=== PATIENT | male | born 1965 | race Caucasian/White ===

== ENCOUNTER 2019-11-25 16:35 | Emergency (ER) | payer MEDICAID, SELFPAY ==
[2019-11-25 16:39] VITALS: BP 176/108; PULSE 87; RESP 16; TEMP 37.1; O2SAT 98; BMI 27.4
--- NOTE | 2019-11-25 16:48 | ED_ITS ---
Documented by User: Richie Matthew DO 11/26/19 06:05 HPI - Neuro Symptoms/Deficit General: Chief Complaint: Neuro Symptoms/Deficit Stated Complaint: stroke s/s Time Seen by Provider: 11/25/19 16:47 History of Present Illness: HPI Narrative: 54-year-old male presents complaining of left-sided facial pain and numbness. He has had this on and off for the last several weeks. His speech is been slurred with it as well but is completely resolved now he usually does not take any aspirin most days times he has these episodes of the last about 15 minutes today lasted 30 minutes. He denies any chest pain or shortness of breath with it. He denies any recent head trauma he is not on any kind of regular anticoagulants. Associated symptoms: Deny chest pain, malaise, nausea or vomiting Review of Systems Const: Denies: fever, chills, body aches, change in appetite, fatigue or malaise ENMT: Denies: throat pain, ear pain, nasal discharge or nasal congestion Card: Denies: chest pain, edema, shortness of breath on exertion or shortness of breath when lying down Resp: Denies: shortness of breath, productive cough or non-productive cough GI: Denies: abdominal pain, nausea, vomiting, vomiting blood, coffee grounds in vomit, diarrhea, constipation, bloating, blood in stool or black tarry stool : Denies: flank pain, painful urination, urinary frequency or urinary urgency Skin/Breast: Denies: rash or itching PFSH ED PFSH: Medical History (Updated 11/25/19 @ 22:12 by AUBREY Moses) Essential (primary) hypertension Mixed hyperlipidemia Personal history of nicotine dependence Surgical History (Updated 11/25/19 @ 21:35 by AUBREY Moses) No pertinent past surgical history Social History (Updated 11/25/19 @ 22:00 by AUBREY Moses) Smoking and tobacco status: current every day smoker Lives independently: Yes Household members: family Housing: House Current gender identity: Male NIH stroke score NIHSS: Level Of Consciousness - 1a: 0 Level Of Consciousness Questions - 1b: Both Correct Level Of Consciousness Commands - 1c: Both Correct Best Gaze - 2: Normal Visual Santos - 3: No Visual Loss Facial Palsy - 4: Normal Motor Arm Right - 5: No Drift Motor Arm Left - 5: No Drift Motor Leg Right - 6: No Drift Motor Leg Left - 6: No Drift Limb Ataxia - 7: Absent Sensory - 8: Normal Best Language - 9: No Aphasia Dysarthia - 10: Normal Extinction And Inattention - 11: 0 Score: Total Score: 0 Physical Exam Const: COMMON NORMALS: no apparent distress GENERAL APPEARANCE: cooperative and comfortable ORIENTATION/CONSCIOUSNESS: Yes awake, Yes oriented to person, Yes oriented to place and Yes oriented to time HENMT: COMMON NORMALS: normocephalic, head/scalp atraumatic, hearing grossly normal bilaterally, external ears normal, EAC's normal, TM's normal bilaterally, nasal mucous membranes and turbinates normal, moist oral mucous membranes and oropharynx normal HEAD & SCALP: normocephalic and atraumatic NOSE: nasal mucous membranes and turbinates normal EXTERNAL EAR: Yes external ears normal EXTERNAL AUDITORY CANAL: EAC's normal TYMPANIC MEMBRANE: TM's normal bilaterally Eye: COMMON NORMALS: PERRL, EOMs intact bilaterally, conjunctivae normal and no scleral icterus CONJUNCTIVA: Yes conjunctivae normal PUPIL: Yes PERRL Neck/C-Spine: COMMON NORMALS: full ROM, no lymphadenopathy, supple and no JVD Lymph: LYMPHATIC: no lymphadenopathy noted and no lymphedema noted Resp: COMMON NORMALS: normal respiratory effort, no retractions, no use of accessory muscles and clear to auscultation bilaterally AUSCULTATION: clear to auscultation bilaterally Cardio: COMMON NORMALS: no JVD, regular rate, regular rhythm and no murmurs RATE: regular rate RHYTHM: regular rhythm GI: COMMON NORMALS: soft to palpation and no hepatosplenomegaly AUSCULTATION: Yes normoactive bowel sounds PALPATION: Yes soft, No tender, No guarding and Yes no hepatosplenomegaly Extremity: COMMON NORMALS: normal to inspection, normal capillary refill, no clubbing, cyanosis or edema, no calf tenderness and no pedal edema Neuro: SENSORIUM/ORIENTATION: Yes oriented to person, Yes oriented to place and Yes oriented to time Skin: COMMON NORMALS: no rashes or lesions noted GENERAL SKIN EXAM: no rashes or lesions noted Course Vital Signs: Vital signs: Vital Signs Temperature 98.7 F 11/25/19 16:39 Pulse Rate 76 11/25/19 18:38 Respiratory Rate 18 04/20/20 18:38 Blood Pressure 138/78 11/25/19 18:38 Pulse Oximetry 98 11/25/19 18:38 MDM - Neuro Symptoms/Deficit Lab Data: Labs: Lab Results 11/25/19 11/25/19 11/25/19 Range/Units 17:26 17:26 17:35 WBC 8.1 (4.0-10.0) 10^3/ uL RBC 5.38 H (4.1-5.3) 10^6/u L Hgb 15.5 (11.7-16.6) g/dL Hct 47.3 (42.0-52.0) % MCV 87.9 (80-94) fL MCH 28.8 (28.0-34.0) pg MCHC 32.8 (30.0-36.0) g/dL RDW 15.3 H (12.1-15.1) % Plt Count 287 (130-400) 10^3/c mm MPV 10.5 H (7.4-10.4) fL Neut % (Auto) 67.8 % Lymph % (Auto) 23.8 % [place] % (Auto) 6.6 % Eos % (Auto) 1.5 % Baso % (Auto) 0.1 % Neut # (Auto) 5.5 (1.8-7.7) 10^3/u L Lymph # (Auto) 1.9 (0.8-4.8) 10^3/u L [place] # (Auto) 0.5 (0.2-0.9) 10^3/u L Eos # (Auto) 0.1 (0.0-0.8) 10^3/u L Baso # (Auto) 0.0 (0.0-0.1) 10^3/u L Nucleated RBC % (a uto) 0 % Nucleated RBCs # 0.0 /100WBC PT (10.5-13.3) SECO NDS INR (0.8-1.2) APTT (23.9-36.7) SECO NDS Sodium (136-145) mmol/L Potassium (3.5-5.1) mmol/L Chloride (98-107) mmol/L Carbon Dioxide (22-29) mmol/L Anion Gap (5-19) BUN (6-20) mg/dL Creatinine (0.7-1.2) mg/dL GFR Calculation (90-130) mL/min Glucose (65-115) mg/dL POC Glucose (70-110) mg/dL Calculated Osmolal ity (285-295) mOsm/k g Calcium (8.5-10.5) mg/dL Total Bilirubin (0.15-1.2) mg/dL AST (0-40) U/L ALT (0-41) U/L Alkaline Phosphata se (40-130) IU/L Total Protein (6.6-8.7) g/dL Albumin (3.5-5.2) g/dL Globulin (1.3-4.6) g/dL Triglycerides (0-150) mg/dL Cholesterol (0-200) mg/dL LDL Cholesterol, C alc (50-129) mg/dL HDL Cholesterol (60-100) mg/dL LDL/HDL Ratio (0.00-3.22) RATI O Cholesterol/HDL Ra lana (1.0-5.00) mg/dL Urine Color Yellow (Yellow) Urine Appearance Clear (CLEAR) Urine pH 6 (5-7) Ur Specific Gravit y 1.010 (1.005-1.030) Urine Protein Neg (Negative) Urine Glucose (UA) Norm (Normal) Urine Ketones Negative (Negative) Urine Blood Neg (Negative) Urine Nitrate Negative (Negative) Urine Bilirubin Neg (NEGATIVE) Urine Urobilinogen Norm (Negative) mg/dL Ur Leukocyte Mirna ase Negative (Negative) Urine Opiates Scre en Negative (Negative) ng/mL Ur Barbiturates Sc reen Negative (Negative) ng/mL Ur Phencyclidine S crn Negative (Negative) ng/mL Ur Amphetamines Sc reen Negative (Negative) ng/mL U Benzodiazepines Scrn Negative (Negative) ng/mL Urine Cocaine Scre en Negative (Negative) ng/mL U Marijuana (THC) Screen Negative (Negative) ng/mL 11/25/19 11/25/19 11/25/19 Range/Units 17:44 18:17 18:17 WBC (4.0-10.0) 10^3/ uL RBC (4.1-5.3) 10^6/u L Hgb (11.7-16.6) g/dL Hct (42.0-52.0) % MCV (80-94) fL MCH (28.0-34.0) pg MCHC (30.0-36.0) g/dL RDW (12.1-15.1) % Plt Count (130-400) 10^3/c mm MPV (7.4-10.4) fL Neut % (Auto) % Lymph % (Auto) % [place] % (Auto) % Eos % (Auto) % Baso % (Auto) % Neut # (Auto) (1.8-7.7) 10^3/u L Lymph # (Auto) (0.8-4.8) 10^3/u L [place] # (Auto) (0.2-0.9) 10^3/u L Eos # (Auto) (0.0-0.8) 10^3/u L Baso # (Auto) (0.0-0.1) 10^3/u L Nucleated RBC % (a uto) % Nucleated RBCs # /100WBC PT 13.00 (10.5-13.3) SECO NDS INR 0.96 (0.8-1.2) APTT 32.3 (23.9-36.7) SECO NDS Sodium 136 (136-145) mmol/L Potassium 3.8 (3.5-5.1) mmol/L Chloride 99 (98-107) mmol/L Carbon Dioxide 27 (22-29) mmol/L Anion Gap 13.8 (5-19) BUN 14 (6-20) mg/dL Creatinine 1.5 H (0.7-1.2) mg/dL GFR Calculation 48.6 L (90-130) mL/min Glucose 83 (65-115) mg/dL POC Glucose 91 (70-110) mg/dL Calculated Osmolal ity 277 L (285-295) mOsm/k g Calcium 9.8 (8.5-10.5) mg/dL Total Bilirubin 0.3 (0.15-1.2) mg/dL AST 13 (0-40) U/L ALT 12 (0-41) U/L Alkaline Phosphata se 104 (40-130) IU/L Total Protein 7.1 (6.6-8.7) g/dL Albumin 3.9 (3.5-5.2) g/dL Globulin 3.2 (1.3-4.6) g/dL Triglycerides (0-150) mg/dL Cholesterol (0-200) mg/dL LDL Cholesterol, C alc (50-129) mg/dL HDL Cholesterol (60-100) mg/dL LDL/HDL Ratio (0.00-3.22) RATI O Cholesterol/HDL Ra lana (1.0-5.00) mg/dL Urine Color (Yellow) Urine Appearance (CLEAR) Urine pH (5-7) Ur Specific Gravit y (1.005-1.030) Urine Protein (Negative) Urine Glucose (UA) (Normal) Urine Ketones (Negative) Urine Blood (Negative) Urine Nitrate (Negative) Urine Bilirubin (NEGATIVE) Urine Urobilinogen (Negative) mg/dL Ur Leukocyte Mirna ase (Negative) Urine Opiates Scre en (Negative) ng/mL Ur Barbiturates Sc reen (Negative) ng/mL Ur Phencyclidine S crn (Negative) ng/mL Ur Amphetamines Sc reen (Negative) ng/mL U Benzodiazepines Scrn (Negative) ng/mL Urine Cocaine Scre en (Negative) ng/mL U Marijuana (THC) Screen (Negative) ng/mL 11/25/19 Range/Units 18:17 WBC (4.0-10.0) 10^3/ uL RBC (4.1-5.3) 10^6/u L Hgb (11.7-16.6) g/dL Hct (42.0-52.0) % MCV (80-94) fL MCH (28.0-34.0) pg MCHC (30.0-36.0) g/dL RDW (12.1-15.1) % Plt Count (130-400) 10^3/c mm MPV (7.4-10.4) fL Neut % (Auto) % Lymph % (Auto) % [place] % (Auto) % Eos % (Auto) % Baso % (Auto) % Neut # (Auto) (1.8-7.7) 10^3/u L Lymph # (Auto) (0.8-4.8) 10^3/u L [place] # (Auto) (0.2-0.9) 10^3/u L Eos # (Auto) (0.0-0.8) 10^3/u L Baso # (Auto) (0.0-0.1) 10^3/u L Nucleated RBC % (a uto) % Nucleated RBCs # /100WBC PT (10.5-13.3) SECO NDS INR (0.8-1.2) APTT (23.9-36.7) SECO NDS Sodium (136-145) mmol/L Potassium (3.5-5.1) mmol/L Chloride (98-107) mmol/L Carbon Dioxide (22-29) mmol/L Anion Gap (5-19) BUN (6-20) mg/dL Creatinine (0.7-1.2) mg/dL GFR Calculation (90-130) mL/min Glucose (65-115) mg/dL POC Glucose (70-110) mg/dL Calculated Osmolal ity (285-295) mOsm/k g Calcium (8.5-10.5) mg/dL Total Bilirubin (0.15-1.2) mg/dL AST (0-40) U/L ALT (0-41) U/L Alkaline Phosphata se (40-130) IU/L Total Protein (6.6-8.7) g/dL Albumin (3.5-5.2) g/dL Globulin (1.3-4.6) g/dL Triglycerides 280 H (0-150) mg/dL Cholesterol 212 H (0-200) mg/dL LDL Cholesterol, C alc 137 H (50-129) mg/dL HDL Cholesterol 19 L (60-100) mg/dL LDL/HDL Ratio 7.21 H (0.00-3.22) RATI O Cholesterol/HDL Ra lana 11.16 H (1.0-5.00) mg/dL Urine Color (Yellow) Urine Appearance (CLEAR) Urine pH (5-7) Ur Specific Gravit y (1.005-1.030) Urine Protein (Negative) Urine Glucose (UA) (Normal) Urine Ketones (Negative) Urine Blood (Negative) Urine Nitrate (Negative) Urine Bilirubin (NEGATIVE) Urine Urobilinogen (Negative) mg/dL Ur Leukocyte Mirna ase (Negative) Urine Opiates Scre en (Negative) ng/mL Ur Barbiturates Sc reen (Negative) ng/mL Ur Phencyclidine S crn (Negative) ng/mL Ur Amphetamines Sc reen (Negative) ng/mL U Benzodiazepines Scrn (Negative) ng/mL Urine Cocaine Scre en (Negative) ng/mL U Marijuana (THC) Screen (Negative) ng/mL Discharge Plan Discharge Patient Disposition: Left Against Medical Advice Clinical Impression: Transient cerebral ischemia Qualifiers: Transient cerebral ischemia type: unspecified Qualified Code(s): G45.9 - Transient cerebral ischemic attack, unspecified Condition: Stable Prescriptions: New aspirin 325 mg tablet 325 mg PO DAILY Qty: 90 RF: 0 No Action Tylenol Extra Strength 500 mg Tablet 1,000 mg PO PRN RF: 0 Viagra 100 mg tablet 100 mg PO DAILY PRN (Reason: UNKNOWN) RF: 0 Blood Pressure Med 1 tab PO DAILY RF: 0 Discharge Orders: Discharge Order (Routine); Ordered 11/25/19 Ordered By: Donna Mora Referrals: [facility] FNP-C [Primary Care Provider] - 1-3 days Discharge Diet: Advance as tolerated Discharge Activity: Increase activity as tolerated Patient Instructions: Transient Ischemic Attack (ED), TIA Activity Restrictions/Additional Instructions: You're leaving AGAINST MEDICAL ADVICE and are at risk for or severe permanent disability by doing so. You are more than welcome to return at any time for recheck and for further evaluation and care suture change you change your mind. You have been offered further evaluation and care to better determine your risk for having a complete stroke. I have offered to admit you to complete further evaluation but you have declined. If you change your mind, your symptoms return, or you have any other new symptoms you are encouraged to return to the ER immediately for recheck and further evaluation and care. Take your aspirin daily as I have prescribed and be certain to follow-up with P[facility]i [facility] as soon as possible for further evaluation and care. Stand Alone Forms: Against Medical Advice Discharge Date/Time: 11/25/19 20:43 Sign Out Sign Out Data: Patient Sign Out occurred on 11/25/19 at 18:00. Patient's care was discussed, and care was transferred from to Donna Mora. Coding Level of Care Code ED Summer Intern for Chg Fwd Exam Comprehensive Documented by User: Donna Graciela MeyerAbby 11/25/19 20:03 HPI - Neuro Symptoms/Deficit General: Chief Complaint: Neuro Symptoms/Deficit Stated Complaint: stroke s/s Time Seen by Provider: 11/25/19 16:47 PFSH ED PFSH: Medical History (Updated 11/25/19 @ 22:12 by AUBREY Moses) Essential (primary) hypertension Mixed hyperlipidemia Personal history of nicotine dependence Surgical History (Updated 11/25/19 @ 21:35 by AUBREY Moses) No pertinent past surgical history Social History (Updated 11/25/19 @ 22:00 by AUBREY Moses) Smoking and tobacco status: current every day smoker Lives independently: Yes Household members: family Housing: House Current gender identity: Male Course Vital Signs: Vital signs: Vital Signs Temperature 98.7 F 11/25/19 16:39 Pulse Rate 76 11/25/19 18:38 Respiratory Rate 18 11/25/19 18:38 Blood Pressure 138/78 11/25/19 18:38 Pulse Oximetry 98 11/25/19 18:38 MDM - Neuro Symptoms/Deficit MDM Narrative: Medical decision making narrative: 1800 -Case assumed by me at change of shift from Dr. Matthew. Please see his note for his history, physical exam and medical decision-making notes. Patient states he is symptom- free at this time. I discussed with him a normal head CT but informed him that he is at risk of worsening symptoms as his TIA sounds like they are getting worse. They are becoming slightly more frequent by history and also more severe and lasting longer. Informed the patient it would be safest if he came into the hospital for complete and formal work-up but he refuses. I will go ahead and do all that I can for him here with CTs and laboratory studies and have him follow- up with Dr. Hayden in [place]. Patient agrees to more extensive ER work-up. 1999 -the patient refuses to wait any longer and wants to go home. His lipid panel is pending at this time. His CTA did not show anything intervene of all at this time. The patient understands he needs to take an aspirin daily and I have reviewed with him the risks and benefits of staying but he still refuses to stay and demands to go home. He agrees to follow-up with the payal soon as possible states he understands but still at this time declined staying in the hospital. The patient clearly has the capacity to make his own decisions. He has asked questions and have them answered to his satisfaction and has used this information and still made the decision that he wants to go home. He does agree to return should his symptoms return. Lab Data: Attestation: I reviewed the patient's lab results. Labs: Lab Results 11/25/19 11/25/19 11/25/19 Range/Units 17:26 17:26 17:35 WBC 8.1 (4.0-10.0) 10^3/ uL RBC 5.38 H (4.1-5.3) 10^6/u L Hgb 15.5 (11.7-16.6) g/dL Hct 47.3 (42.0-52.0) % MCV 87.9 (80-94) fL MCH 28.8 (28.0-34.0) pg MCHC 32.8 (30.0-36.0) g/dL RDW 15.3 H (12.1-15.1) % Plt Count 287 (130-400) 10^3/c mm MPV 10.5 H (7.4-10.4) fL Neut % (Auto) 67.8 % Lymph % (Auto) 23.8 % [place] % (Auto) 6.6 % Eos % (Auto) 1.5 % Baso % (Auto) 0.1 % Neut # (Auto) 5.5 (1.8-7.7) 10^3/u L Lymph # (Auto) 1.9 (0.8-4.8) 10^3/u L [place] # (Auto) 0.5 (0.2-0.9) 10^3/u L Eos # (Auto) 0.1 (0.0-0.8) 10^3/u L Baso # (Auto) 0.0 (0.0-0.1) 10^3/u L Nucleated RBC % (a uto) 0 % Nucleated RBCs # 0.0 /100WBC PT (10.5-13.3) SECO NDS INR (0.8-1.2) APTT (23.9-36.7) SECO NDS Sodium (136-145) mmol/L Potassium (3.5-5.1) mmol/L Chloride (98-107) mmol/L Carbon Dioxide (22-29) mmol/L Anion Gap (5-19) BUN (6-20) mg/dL Creatinine (0.7-1.2) mg/dL GFR Calculation (90-130) mL/min Glucose (65-115) mg/dL POC Glucose (70-110) mg/dL Calculated Osmolal ity (285-295) mOsm/k g Calcium (8.5-10.5) mg/dL Total Bilirubin (0.15-1.2) mg/dL AST (0-40) U/L ALT (0-41) U/L Alkaline Phosphata se (40-130) IU/L Total Protein (6.6-8.7) g/dL Albumin (3.5-5.2) g/dL Globulin (1.3-4.6) g/dL Triglycerides (0-150) mg/dL Cholesterol (0-200) mg/dL LDL Cholesterol, C alc (50-129) mg/dL HDL Cholesterol (60-100) mg/dL LDL/HDL Ratio (0.00-3.22) RATI O Cholesterol/HDL Ra lana (1.0-5.00) mg/dL Urine Color Yellow (Yellow) Urine Appearance Clear (CLEAR) Urine pH 6 (5-7) Ur Specific Gravit y 1.010 (1.005-1.030) Urine Protein Neg (Negative) Urine Glucose (UA) Norm (Normal) Urine Ketones Negative (Negative) Urine Blood Neg (Negative) Urine Nitrate Negative (Negative) Urine Bilirubin Neg (NEGATIVE) Urine Urobilinogen Norm (Negative) mg/dL Ur Leukocyte Mirna ase Negative (Negative) Urine Opiates Scre en Negative (Negative) ng/mL Ur Barbiturates Sc reen Negative (Negative) ng/mL Ur Phencyclidine S crn Negative (Negative) ng/mL Ur Amphetamines Sc reen Negative (Negative) ng/mL U Benzodiazepines Scrn Negative (Negative) ng/mL Urine Cocaine Scre en Negative (Negative) ng/mL U Marijuana (THC) Screen Negative (Negative) ng/mL 11/25/19 11/25/19 11/25/19 Range/Units 17:44 18:17 18:17 WBC (4.0-10.0) 10^3/ uL RBC (4.1-5.3) 10^6/u L Hgb (11.7-16.6) g/dL Hct (42.0-52.0) % MCV (80-94) fL MCH (28.0-34.0) pg MCHC (30.0-36.0) g/dL RDW (12.1-15.1) % Plt Count (130-400) 10^3/c mm MPV (7.4-10.4) fL Neut % (Auto) % Lymph % (Auto) % [place] % (Auto) % Eos % (Auto) % Baso % (Auto) % Neut # (Auto) (1.8-7.7) 10^3/u L Lymph # (Auto) (0.8-4.8) 10^3/u L [place] # (Auto) (0.2-0.9) 10^3/u L Eos # (Auto) (0.0-0.8) 10^3/u L Baso # (Auto) (0.0-0.1) 10^3/u L Nucleated RBC % (a uto) % Nucleated RBCs # /100WBC PT 13.00 (10.5-13.3) SECO NDS INR 0.96 (0.8-1.2) APTT 32.3 (23.9-36.7) SECO NDS Sodium 136 (136-145) mmol/L Potassium 3.8 (3.5-5.1) mmol/L Chloride 99 (98-107) mmol/L Carbon Dioxide 27 (22-29) mmol/L Anion Gap 13.8 (5-19) BUN 14 (6-20) mg/dL Creatinine 1.5 H (0.7-1.2) mg/dL GFR Calculation 48.6 L (90-130) mL/min Glucose 83 (65-115) mg/dL POC Glucose 91 (70-110) mg/dL Calculated Osmolal ity 277 L (285-295) mOsm/k g Calcium 9.8 (8.5-10.5) mg/dL Total Bilirubin 0.3 (0.15-1.2) mg/dL AST 13 (0-40) U/L ALT 12 (0-41) U/L Alkaline Phosphata se 104 (40-130) IU/L Total Protein 7.1 (6.6-8.7) g/dL Albumin 3.9 (3.5-5.2) g/dL Globulin 3.2 (1.3-4.6) g/dL Triglycerides (0-150) mg/dL Cholesterol (0-200) mg/dL LDL Cholesterol, C alc (50-129) mg/dL HDL Cholesterol (60-100) mg/dL LDL/HDL Ratio (0.00-3.22) RATI O Cholesterol/HDL Ra lana (1.0-5.00) mg/dL Urine Color (Yellow) Urine Appearance (CLEAR) Urine pH (5-7) Ur Specific Gravit y (1.005-1.030) Urine Protein (Negative) Urine Glucose (UA) (Normal) Urine Ketones (Negative) Urine Blood (Negative) Urine Nitrate (Negative) Urine Bilirubin (NEGATIVE) Urine Urobilinogen (Negative) mg/dL Ur Leukocyte Mirna ase (Negative) Urine Opiates Scre en (Negative) ng/mL Ur Barbiturates Sc reen (Negative) ng/mL Ur Phencyclidine S crn (Negative) ng/mL Ur Amphetamines Sc reen (Negative) ng/mL U Benzodiazepines Scrn (Negative) ng/mL Urine Cocaine Scre en (Negative) ng/mL U Marijuana (THC) Screen (Negative) ng/mL 11/25/19 Range/Units 18:17 WBC (4.0-10.0) 10^3/ uL RBC (4.1-5.3) 10^6/u L Hgb (11.7-16.6) g/dL Hct (42.0-52.0) % MCV (80-94) fL MCH (28.0-34.0) pg MCHC (30.0-36.0) g/dL RDW (12.1-15.1) % Plt Count (130-400) 10^3/c mm MPV (7.4-10.4) fL Neut % (Auto) % Lymph % (Auto) % [place] % (Auto) % Eos % (Auto) % Baso % (Auto) % Neut # (Auto) (1.8-7.7) 10^3/u L Lymph # (Auto) (0.8-4.8) 10^3/u L [place] # (Auto) (0.2-0.9) 10^3/u L Eos # (Auto) (0.0-0.8) 10^3/u L Baso # (Auto) (0.0-0.1) 10^3/u L Nucleated RBC % (a uto) % Nucleated RBCs # /100WBC PT (10.5-13.3) SECO NDS INR (0.8-1.2) APTT (23.9-36.7) SECO NDS Sodium (136-145) mmol/L Potassium (3.5-5.1) mmol/L Chloride (98-107) mmol/L Carbon Dioxide (22-29) mmol/L Anion Gap (5-19) BUN (6-20) mg/dL Creatinine (0.7-1.2) mg/dL GFR Calculation (90-130) mL/min Glucose (65-115) mg/dL POC Glucose (70-110) mg/dL Calculated Osmolal ity (285-295) mOsm/k g Calcium (8.5-10.5) mg/dL Total Bilirubin (0.15-1.2) mg/dL AST (0-40) U/L ALT (0-41) U/L Alkaline Phosphata se (40-130) IU/L Total Protein (6.6-8.7) g/dL Albumin (3.5-5.2) g/dL Globulin (1.3-4.6) g/dL Triglycerides 280 H (0-150) mg/dL Cholesterol 212 H (0-200) mg/dL LDL Cholesterol, C alc 137 H (50-129) mg/dL HDL Cholesterol 19 L (60-100) mg/dL LDL/HDL Ratio 7.21 H (0.00-3.22) RATI O Cholesterol/HDL Ra lana 11.16 H (1.0-5.00) mg/dL Urine Color (Yellow) Urine Appearance (CLEAR) Urine pH (5-7) Ur Specific Gravit y (1.005-1.030) Urine Protein (Negative) Urine Glucose (UA) (Normal) Urine Ketones (Negative) Urine Blood (Negative) Urine Nitrate (Negative) Urine Bilirubin (NEGATIVE) Urine Urobilinogen (Negative) mg/dL Ur Leukocyte Mirna ase (Negative) Urine Opiates Scre en (Negative) ng/mL Ur Barbiturates Sc reen (Negative) ng/mL Ur Phencyclidine S crn (Negative) ng/mL Ur Amphetamines Sc reen (Negative) ng/mL U Benzodiazepines Scrn (Negative) ng/mL Urine Cocaine Scre en (Negative) ng/mL U Marijuana (THC) Screen (Negative) ng/mL Imaging Data^: CTA Head and Neck: Radiologist's impression: [place] [address] CT Scan Report Signed Patient: Sumit Parrish Unit #: [id number] : 1965 Age/Sex: 54 / M ADM Date: 11/25/19 Loc: ER Room/Bed: Attending Dr: Ordering Provider/Ordering MD: Donna Mora DO Date of Service: 11/25/19 Procedure(s): CT angio headneck* [id number] Accession Number(s): [id number] Report Number: [id number] PROCEDURE INFORMATION: Exam: CT Angiography Head With Contrast Exam date and time: 11/25/2019 6:58 PM Age: 54 years old Clinical indication: Speech disturbance; Additional info: TIA TECHNIQUE: Imaging protocol: Computed tomography angiography of the head with intravenous contrast. 3D rendering: MIP and/or 3D reconstructed images were created by the technologist. Total DLP: 2481.86 mGy-cm Radiation optimization: All CT scans at this facility use at least one of these dose optimization techniques: automated exposure control; mA and/or kV adjustment per patient size (includes targeted exams where dose is matched to clinical indication); or iterative reconstruction. Contrast material: OMNI 350; Contrast volume: 95 ml; Contrast route: IV; COMPARISON: CT head wo con* [id number] 11/25/2019 5:15 PM FINDINGS: Right internal carotid artery: Calcified plaque in the cavernous portion of the right internal carotid artery without stenosis. Right anterior cerebral artery: No occlusion or significant stenosis. No aneurysm. Right middle cerebral artery: No occlusion or significant stenosis. No aneurysm. Right posterior cerebral artery: No occlusion or significant stenosis. No aneurysm. Right vertebral artery: No occlusion or significant stenosis. No aneurysm. Left internal carotid artery: Intracranial segment is patent with no significant stenosis or occlusion. No aneurysm. Left anterior cerebral artery: No occlusion or significant stenosis. No aneurysm. Left middle cerebral artery: No occlusion or significant stenosis. No aneurysm. Left posterior cerebral artery: No occlusion or significant stenosis. No aneurysm. Left vertebral artery: No occlusion or significant stenosis. No aneurysm. Basilar artery: No occlusion or significant stenosis. No aneurysm. IMPRESSION: 1. No large vessel occlusion or stenosis. PROCEDURE INFORMATION: Exam: CT Angiography Neck With Contrast Exam date and time: 11/25/2019 6:58 PM Age: 54 years old Clinical indication: Speech disturbance; Additional info: TIA TECHNIQUE: Imaging protocol: Computed tomography angiography of the neck with intravenous contrast. 3D rendering: MIP and/or 3D reconstructed images were created by the technologist. Total DLP: 2481.86 mGy-cm Radiation optimization: All CT scans at this facility use at least one of these dose optimization techniques: automated exposure control; mA and/or kV adjustment per patient size (includes targeted exams where dose is matched to clinical indication); or iterative reconstruction. Contrast material: OMNI 350; Contrast volume: 95 ml; Contrast route: IV; COMPARISON: CT head wo con* [id number] 11/25/2019 5:15 PM FINDINGS: VASCULATURE: Right common carotid artery: No stenosis. No dissection or occlusion. Right internal carotid artery: Mild calcified plaque in the proximal right internal carotid artery without stenosis. Right external carotid artery: No occlusion or stenosis of the origin. Right vertebral artery: No stenosis. No dissection or occlusion. Left common carotid artery: No stenosis. No dissection or occlusion. Left internal carotid artery: Mild calcified plaque in the proximal left internal carotid artery without stenosis. Left external carotid artery: No occlusion or stenosis of the origin. Left vertebral artery: No stenosis. No dissection or occlusion. NECK: Bones/joints: No acute fracture. Soft tissues: Normal. No significant soft tissue swelling. Lungs: Ground-glass opacities in the central lungs. CT/CT angio headneck* [id number] IMPRESSION: 1. Calcified plaque in the proximal internal carotid arteries without significant stenosis. REFERENCES: NASCET CRITERIA. The degree of internal carotid artery stenosis is based on NASCET criteria. Normal is no stenosis. Mild is less than 50% stenosis. Moderate is 50-69% stenosis. Severe is 70% to 99% stenosis. Total occlusion is no detectable patent lumen. Radiation Dose CTDIVOL = (mGy): DLP = 2481.86 2481.86 (mGy-cm) Dictated By: Demar Fine Signed By: Demar Fine Signed Date/Time: 11/25/191922 DD/ 21 CT Head: Radiologist's impression: [place] [address] CT Scan Report Signed Patient: Sumit Parrish Unit #: [id number] : [id number] Age/Sex: 54 / M ADM Date: 11/25/19 Loc: ER Room/Bed: Attending Dr: Ordering Provider/Ordering MD: Richie Matthew DO Date of Service: 11/25/19 Procedure(s): CT head wo con* [id number] Accession Number(s): [id number] Report Number: [id number] PROCEDURE INFORMATION: Exam: CT Head Without Contrast Exam date and time: 11/25/2019 5:10 PM Age: 54 years old Clinical indication: Dizziness and speech disturbance; Slurred speech; Additional info: Symptoms of acute stroke TECHNIQUE: Imaging protocol: Computed tomography of the head without contrast. Total DLP: 874.31 mGy-cm Radiation optimization: All CT scans at this facility use at least one of these dose optimization techniques: automated exposure control; mA and/or kV adjustment per patient size (includes targeted exams where dose is matched to clinical indication); or iterative reconstruction. COMPARISON: CT head wo con* [id number] 01/13/2016 7:38 PM FINDINGS: Brain: Mild cortical volume loss. Moderate patchy hypodensities have progressed in supratentorial periventricular and subcortical white matter. Old lacunar infarcts in the left thalamus and right basal ganglia. No intracranial hemorrhage. Ventricles: Normal. No ventriculomegaly. Bones/joints: Unremarkable. No acute fracture. Sinuses: Visualized sinuses are unremarkable. No fluid levels. Mastoid air cells: Visualized mastoid air cells are well aerated. Soft tissues: Unremarkable. CT/CT head wo con* [id number] IMPRESSION: 1. No definite acute intracranial abnormality. 2. Progressive moderate microangiopathy. Radiation Dose CTDIVOL = (mGy): DLP = 874.31 (mGy-cm) Dictated By: Demar Fine Signed By: Demar Fine Signed Date/Time: 11/25/191729 DD/ 28 EKG Data^: EKG 1: Attestation: I personally reviewed and interpreted this EKG as follows: EKG interpretation date: 11/25/19 EKG interpretation time: 17:37 Interpretation: Normal sinus rhythm at 71 beats a minute, normal intervals, no blocks, LVH, no other acute ST-T wave changes. Discharge Plan Discharge Patient Disposition: Left Against Medical Advice Clinical Impression: Transient cerebral ischemia Qualifiers: Transient cerebral ischemia type: unspecified Qualified Code(s): G45.9 - Transi ent cerebral ischemic attack, unspecified Condition: Stable Prescriptions: New aspirin 325 mg tablet 325 mg PO DAILY Qty: 90 RF: 0 No Action Tylenol Extra Strength 500 mg Tablet 1,000 mg PO PRN RF: 0 Viagra 100 mg tablet 100 mg PO DAILY PRN (Reason: UNKNOWN) RF: 0 Blood Pressure Med 1 tab PO DAILY RF: 0 Discharge Orders: Discharge Order (Routine); Ordered 11/25/19 Ordered By: Donna Mora Referrals: Priti Davis, DEBONE PROCESSING SUPERVISOR-C [Primary Care Provider] - 1-3 days Discharge Diet: Advance as tolerated Discharge Activity: Increase activity as tolerated Patient Instructions: Transient Ischemic Attack (ED), TIA Activity Restrictions/Additional Instructions: You're leaving AGAINST MEDICAL ADVICE and are at risk for or severe permanent disability by doing so. You are more than welcome to return at any time for recheck and for further evaluation and care suture change you change your mind. You have been offered further evaluation and care to better determine your risk for having a complete stroke. I have offered to admit you to complete further evaluation but you have declined. If you change your mind, your symptoms return, or you have any other new symptoms you are encouraged to return to the ER immediately for recheck and further evaluation and care. Take your aspirin daily as I have prescribed and be certain to follow-up with Priti Davis as soon as possible for further evaluation and care. Stand Alone Forms: Against Medical Advice Discharge Date/Time: 11/25/19 20:43 Sign Out Sign Out Data: Patient Sign Out occurred on 11/25/19 at 18:00. Patient's care was discussed, and care was transferred from to Donna Mora. Coding Level of Care Code ED Summer Intern for Tory Fwd Exam Comprehensive
--- NOTE | 2019-11-25 17:09 | ECG_ITS ---
Measurements Intervals [place] Rate: 71 P: 34 NV: 124 QRS: -22 QRSD: 108 T: 64 QT: 384 QTc: 418 SINUS RHYTHM BORDERLINE LEFT AXIS DEVIATION [QRS AXIS < -20] MODERATE VOLTAGE CRITERIA FOR LVH, CONSIDER NORMAL VARIANT [MEETS CRITERIA IN ONE ONE OF: R(aVL), S(V1), R(V5), R(V5/V6)+S(V1)] NONSPECIFIC T-WAVE ABNORMALITY Compared to ECG 01/14/2016 01:21:33 No significant changes Electronically Signed On 11-26-2019 18:07:33 CDT by Maida De Dios M.D. [email or web address]
--- NOTE | 2019-11-25 17:09 | CTR_ITS ---
PROCEDURE INFORMATION: Exam: CT Head Without Contrast Exam date and time: 11/25/2019 5:10 PM Age: 54 years old Clinical indication: Dizziness and speech disturbance; Slurred speech; Additional info: Symptoms of acute stroke TECHNIQUE: Imaging protocol: Computed tomography of the head without contrast. Total DLP: 874.31 mGy-cm Radiation optimization: All CT scans at this facility use at least one of these dose optimization techniques: automated exposure control; mA and/or kV adjustment per patient size (includes targeted exams where dose is matched to clinical indication); or iterative reconstruction. COMPARISON: CT head wo con* [id number] 01/13/2016 7:38 PM FINDINGS: Brain: Mild cortical volume loss. Moderate patchy hypodensities have progressed in supratentorial periventricular and subcortical white matter. Old lacunar infarcts in the left thalamus and right basal ganglia. No intracranial hemorrhage. Ventricles: Normal. No ventriculomegaly. Bones/joints: Unremarkable. No acute fracture. Sinuses: Visualized sinuses are unremarkable. No fluid levels. Mastoid air cells: Visualized mastoid air cells are well aerated. Soft tissues: Unremarkable. CT/CT head wo con* [id number] IMPRESSION: 1. No definite acute intracranial abnormality. 2. Progressive moderate microangiopathy. Radiation Dose CTDIVOL = (mGy): DLP = 874.31 (mGy-cm)
[2019-11-25 17:41] VITALS: BP 150/92; PULSE 74; RESP 20; O2SAT 96
[2019-11-25 17:48] LABS: Glucose Point of Care 91 mg/dL (70-110)
[2019-11-25 17:50] LABS: Basophils % 0.1 %; Eosinophils # 0.1 10^3/uL (0.0-0.8); Eosinophils % 1.5 %; Hematocrit 47.3 % (42.0-52.0); Hemoglobin 15.5 g/dL (11.7-16.6); Lymphocytes # 1.9 10^3/uL (0.8-4.8); Lymphocytes % 23.8 %; Mean Corpuscular HGB Conc 32.8 g/dL (30.0-36.0); Mean Corpuscular Hemoglobin 28.8 pg (28.0-34.0); Mean Corpuscular Volume 87.9 fL (80-94); Mean Platelet Volume 10.5 fL (7.4-10.4); Monocytes # 0.5 10^3/uL (0.2-0.9); Monocytes % 6.6 %; Neutrophils # 5.5 10^3/uL (1.8-7.7); Neutrophils % 67.8 %; Nucleated Red Blood Cells % 0 %; Platelet Count 287 10^3/cmm (130-400); Red Blood Count 5.38 10^6/uL (4.1-5.3); Red Cell Distribution Width 15.3 % (12.1-15.1); White Blood Count 8.1 10^3/uL (4.0-10.0)
[2019-11-25 18:04] LABS: Add Urine Microscopic? NO
[2019-11-25 18:11] LABS: Bilirubin Urine Neg (NEGATIVE); Blood Urine Neg (Negative); Glucose Urine UA Norm (Normal); Ketones Urine Negative (Negative); Leukocyte Esterase Urine Negative (Negative); Nitrate Urine Negative (Negative); Protein Urine Neg (Negative); Urine Appearance Clear (CLEAR); Urine Color Yellow (Yellow); Urobilinogen Urine Norm (Negative); pH Urine 6 (5-7)
[2019-11-25 18:18] LABS: Amphetamines Screen Urine Negative (Negative); Barbiturates Screen Urine Negative (Negative); Benzodiazepines Screen Urine Negative (Negative); Cocaine Screen Urine Negative (Negative); Opiate Screen Urine Negative (Negative); PCP Screen Urine Negative (Negative); THC Screen Urine Negative (Negative)
--- NOTE | 2019-11-25 18:27 | CTR_ITS ---
PROCEDURE INFORMATION: Exam: CT Angiography Head With Contrast Exam date and time: 11/25/2019 6:58 PM Age: 54 years old Clinical indication: Speech disturbance; Additional info: TIA TECHNIQUE: Imaging protocol: Computed tomography angiography of the head with intravenous contrast. 3D rendering: MIP and/or 3D reconstructed images were created by the technologist. Total DLP: 2481.86 mGy-cm Radiation optimization: All CT scans at this facility use at least one of these dose optimization techniques: automated exposure control; mA and/or kV adjustment per patient size (includes targeted exams where dose is matched to clinical indication); or iterative reconstruction. Contrast material: OMNI 350; Contrast volume: 95 ml; Contrast route: IV; COMPARISON: CT head wo con* [id number] 11/25/2019 5:15 PM FINDINGS: Right internal carotid artery: Calcified plaque in the cavernous portion of the right internal carotid artery without stenosis. Right anterior cerebral artery: No occlusion or significant stenosis. No aneurysm. Right middle cerebral artery: No occlusion or significant stenosis. No aneurysm. Right posterior cerebral artery: No occlusion or significant stenosis. No aneurysm. Right vertebral artery: No occlusion or significant stenosis. No aneurysm. Left internal carotid artery: Intracranial segment is patent with no significant stenosis or occlusion. No aneurysm. Left anterior cerebral artery: No occlusion or significant stenosis. No aneurysm. Left middle cerebral artery: No occlusion or significant stenosis. No aneurysm. Left posterior cerebral artery: No occlusion or significant stenosis. No aneurysm. Left vertebral artery: No occlusion or significant stenosis. No aneurysm. Basilar artery: No occlusion or significant stenosis. No aneurysm. IMPRESSION: 1. No large vessel occlusion or stenosis. PROCEDURE INFORMATION: Exam: CT Angiography Neck With Contrast Exam date and time: 11/25/2019 6:58 PM Age: 54 years old Clinical indication: Speech disturbance; Additional info: TIA TECHNIQUE: Imaging protocol: Computed tomography angiography of the neck with intravenous contrast. 3D rendering: MIP and/or 3D reconstructed images were created by the technologist. Total DLP: 2481.86 mGy-cm Radiation optimization: All CT scans at this facility use at least one of these dose optimization techniques: automated exposure control; mA and/or kV adjustment per patient size (includes targeted exams where dose is matched to clinical indication); or iterative reconstruction. Contrast material: OMNI 350; Contrast volume: 95 ml; Contrast route: IV; COMPARISON: CT head wo con* [id number] 11/25/2019 5:15 PM FINDINGS: VASCULATURE: Right common carotid artery: No stenosis. No dissection or occlusion. Right internal carotid artery: Mild calcified plaque in the proximal right internal carotid artery without stenosis. Right external carotid artery: No occlusion or stenosis of the origin. Right vertebral artery: No stenosis. No dissection or occlusion. Left common carotid artery: No stenosis. No dissection or occlusion. Left internal carotid artery: Mild calcified plaque in the proximal left internal carotid artery without stenosis. Left external carotid artery: No occlusion or stenosis of the origin. Left vertebral artery: No stenosis. No dissection or occlusion. NECK: Bones/joints: No acute fracture. Soft tissues: Normal. No significant soft tissue swelling. Lungs: Ground-glass opacities in the central lungs. CT/CT angio headneck* [id number] IMPRESSION: 1. Calcified plaque in the proximal internal carotid arteries without significant stenosis. REFERENCES: NASCET CRITERIA. The degree of internal carotid artery stenosis is based on NASCET criteria. Normal is no stenosis. Mild is less than 50% stenosis. Moderate is 50-69% stenosis. Severe is 70% to 99% stenosis. Total occlusion is no detectable patent lumen. Radiation Dose CTDIVOL = (mGy): DLP = 2481.86~2481.86 (mGy-cm)
[2019-11-25 18:38] VITALS: BP 138/78; PULSE 76; RESP 18; O2SAT 98
[2019-11-25] MEDS: aspirin 325 mg Tablet PO (18:38)
[2019-11-25 18:56] LABS: INR 0.96 (0.8-1.2); Partial Thromboplastin Time 32.3 SECONDS (23.9-36.7)
[2019-11-25] MEDS: iohexol 350 mg/mL 100 mL Btl IV (19:05)
[2019-11-25 19:49] LABS: Alanine Aminotransferase 12 U/L (0-41); Albumin Level 3.9 g/dL (3.5-5.2); Alkaline Phosphatase 104 IU/L (40-130); Anion Gap 13.8 (5-19); Aspartate Amino Transferase 13 U/L (0-40); Blood Urea Nitrogen 14 mg/dL (6-20); Calcium 9.8 mg/dL (8.5-10.5); Carbon Dioxide 27 mmol/L (22-29); Chloride 99 mmol/L (98-107); Globulin 3.2 g/dL (1.3-4.6); Glomerular Filtration Rate 48.6 mL/min (90-130); Glucose 83 mg/dL (65-115); Osmolality Calculated 277 mOsm/kg (285-295); Potassium 3.8 mmol/L (3.5-5.1); Sodium 136 mmol/L (136-145); Total Bilirubin 0.3 mg/dL (0.15-1.2); Total Protein 7.1 g/dL (6.6-8.7)
[2019-11-25 20:38] LABS: Chol HDL Ratio 11.16 mg/dL (1.0-5.00); Cholesterol 212 mg/dL (0-200); HDL Cholesterol 19 mg/dL (60-100); LDL Cholesterol Calculated 137 mg/dL (50-129); LDL HDL Ratio 7.21 RATIO (0.00-3.22); Triglycerides 280 mg/dL (0-150)
== END 2019-11-25 20:43 | disposition left against medical advice (07) ==
PROVIDERS: Family Medicine; Emergency Provider Emergency Medicine; Family Provider Nurse Practitioner; PCP Nurse Practitioner
DX: G45.9 Transient cerebral ischemic attack, unspecified (principal); Z53.21 Procedure and treatment not carried out due to patient leaving prior to being seen by health care provider; I10 Essential (primary) hypertension; E78.2 Mixed hyperlipidemia; F17.210 Nicotine dependence, cigarettes, uncomplicated
CPT/HCPCS: 12345; 36415; 36416; 70450; 70496; 70498; 80053; 80061; 80306; 81003; 82962; 85025; 85610; 85730; 93005; 99283; 99284; A9270; Q9967

== ENCOUNTER 2020-10-26 15:20 | Observation (INO) | payer MEDICAID, SELFPAY ==
[2020-10-26] VITALS (7 sets, daily range): BP systolic 96–149; BP diastolic 62–103; PULSE 66–96; RESP 14–18; TEMP 36.6–36.9; O2SAT 94–100; BMI 28.2
--- NOTE | 2020-10-26 16:01 | CTR_ITS ---
PROCEDURE INFORMATION: Exam: CT Abdomen And Pelvis With Contrast Exam date and time: 10/26/2020 4:15 PM Age: 55 years old Clinical indication: Abdominal pain; Prior surgery; Surgery type: Appy; Additional info: Abdominal tenderness. N/v TECHNIQUE: Imaging protocol: Computed tomography of the abdomen and pelvis with contrast. Radiation optimization: All CT scans at this facility use at least one of these dose optimization techniques: automated exposure control; mA and/or kV adjustment per patient size (includes targeted exams where dose is matched to clinical indication); or iterative reconstruction. Contrast material: OMNI 300; Contrast volume: 95 ml; Contrast route: INTRAVENOUS (IV); COMPARISON: No relevant prior studies available. RADIATION DOSE METRICS: Total DLP (mGy-cm): 1580.05 FINDINGS: Liver: Normal. No mass. Gallbladder and bile ducts: Normal. No calcified stones. No ductal dilation. Pancreas: Normal. No ductal dilation. Spleen: Normal. No splenomegaly. Adrenal glands: Normal. No mass. Kidneys and ureters: Severe cortical atrophy of the right kidney. Left kidney is unremarkable. Stomach and bowel: Scattered diverticulosis coli. Appendix: No evidence of appendicitis. Intraperitoneal space: Unremarkable. No free air. No significant fluid collection. Vasculature: Diffuse atherosclerotic wall plaque of the abdominal aorta. No dissection. Mild ectasia in the mid abdominal aortic segment which is mildly dilated and measures up to 3.1 cm diameter. Negative for periaortic hematoma. Lymph nodes: Unremarkable. No enlarged lymph nodes. Urinary bladder: Unremarkable as visualized. Reproductive: Unremarkable as visualized. Bones/joints: Unremarkable. No acute fracture. Soft tissues: Unremarkable. CT/CT abdomen pelvis w con* [id number] IMPRESSION: 1. No acute pathology in the abdomen or pelvis identified. 2. Mild mid abdominal aortic aneurysm. Recommend outpatient CT angiogram abdomen and pelvis follow-up in 2 years. Radiation Dose CTDIVOL = (mGy): DLP = 1580.05 (mGy-cm)
--- NOTE | 2020-10-26 16:18 | W.ED.NAVMDI ---
HPI - Nausea/Vomiting/Diarrhea General: Chief complaint: Abdominal Pain Stated complaint: throwning up 1wk , can't keep anything down Time Seen by Provider: 10/26/20 15:43 History of Present Illness: HPI Narrative: The patient is a 55-year-old male who comes to the ER complaining of nausea and vomiting for the past week and diffuse abdominal pain. He comes from snf. He was given a pill of Phenergan today which did not improve his symptoms and was sent to the ER for evaluation. Denies diarrhea he says he can keep liquids down but not foods. MD elicited complaint: nausea, vomiting and abdominal pain Onset (ago): day(s) (7) Description of vomiting: food contents Associated nausea: Yes Associated abdominal pain: Yes Location of pain: Diffuse Pain consistency: intermittent and colicky Severity: moderate Quality: cramping Exacerbating factors: eating Relieving factors: none Associated symtoms: Reports nausea; Denies anxiety, change in vision, chest pain, dizziness, fatigue, headache(s) or palpitations Review of Systems General: Reports: 10 or more systems reviewed and unremarkable except in HPI and below Const: Denies: fatigue Eyes: Denies: change in vision, blurry vision or eye redness ENMT: Denies: throat pain, swelling of lips/tongue, ear or mastoid pain or nasal congestion Card: Denies: chest pain, palpitations, irregular heart rhythm, edema, dyspnea on exertion or orthopnea Resp: Denies: dyspnea, productive cough or non-productive cough GI: Reports: abdominal pain, nausea and vomiting : Denies: flank pain, urinary frequency or urinary urgency Musc: Denies: neck pain, back pain, extremity pain, joint pain, joint redness, limited range of motion or muscle weakness Skin/Breast: Denies: rash, pruritus, erythema, skin pain or skin tenderness Neuro: Denies: headache(s), numbness in extremities, weakness in extremities, sensory changes, difficulty walking, dizziness, confusion or Slurred speech present Psych: Denies: anxiety or depression Endo: Denies: polyuria All/Imm: Denies: urticaria, throat swelling or tongue swelling PFSH ED PFSH: Medical History Essential (primary) hypertension Mixed hyperlipidemia Personal history of nicotine dependence Surgical History No pertinent past surgical history Family History Other Diabetes Hypertension Social History Smoking and tobacco status: current every day smoker Lives independently: Yes Household members: family Housing: House Current gender identity: Male Physical Exam Const: COMMON NORMALS: no acute distress, average body habitus, patient oriented x3, no limitations, healthy appearing, alert and well nourished GENERAL APPEARANCE: cooperative, comfortable, well kempt and well developed ORIENTATION/CONSCIOUSNESS: Yes awake, Yes oriented to person, Yes oriented to place and Yes oriented to time HENMT: COMMON NORMALS: normocephalic, external ears normal and Normal external nose present HEAD & SCALP: normal to inspection and normocephalic NOSE: Normal external nose present EXTERNAL EAR: Yes external ears normal MOUTH: Normal oral and palatal mucosa present THROAT: posterior oropharynx normal Eye: COMMON NORMALS: Equal, round and reactive pupils present and EOMs intact bilaterally GENERAL EYE: appearance normal, both eyes and all related structures PUPIL: Yes Equal, round and reactive pupils present Neck/C-Spine: COMMON NORMALS: full ROM, no lymphadenopathy, no meningeal signs and no JVD GENERAL: Yes normal visual inspection Lymph: LYMPHATIC: no lymphadenopathy noted Chest: COMMONS NORMALS: normal inspection of the chest and normal palpation of entire chest wall Resp: COMMON NORMALS: normal respiratory effort, No retractions, No use of accessory muscles, clear to auscultation bilaterally and percussion normal EFFORT & INSPECTION: Yes able to speak in complete sentences AUSCULTATION: clear to auscultation bilaterally PERCUSSION: percussion normal Cardio: COMMON NORMALS: no JVD, regular rate, regular rhythm, S1 normal heart sound present, S2 normal heart sound present and Peripheral pulses 2+ throughout RATE: regular rate RHYTHM: regular rhythm HEART SOUNDS: S1 normal heart sound present and S2 normal heart sound present PERIPHERAL PULSES: Peripheral pulses 2+ throughout GI: COMMON NORMALS: Normal to inspection, nondistended, normoactive bowel sounds present, Soft to palpation and no masses INSPECTION: Yes normal to inspection AUSCULTATION: Yes Hyperactive bowel sounds present PALPATION: Yes Soft to palpation and Yes Tenderness to palpation present (GI) (diffuse) : COMMON NORMALS: Yes no CVA tenderness BLADDER/KIDNEY EXAM: Yes no CVA tenderness Back/Pelvis: COMMON NORMALS: no CVA tenderness, thoracic and lumbar spine normal to inspection, no thoracic nor lumbar tenderness and thoraco-lumbar ROM normal Extremity: COMMON NORMALS: normal to inspection, full ROM, capillary refill normal, no joint enlargement and no pedal edema GENERAL: Yes normal exam except as noted Neuro: COMMON NORMALS: patient oriented x3, CN's II-XII intact bilaterally, moves all extremities, no focal motor deficits, no sensory deficits noted and gait normal SENSORIUM/ORIENTATION: Yes alert, Yes oriented to person, Yes oriented to place and Yes oriented to time MENINGEAL SIGNS: Yes no meningeal signs Psych: COMMON NORMALS: mental status grossly normal, Normal thought process present, cooperative, normal affect and speech normal APPEARANCE: Yes well kempt ATTITUDE: Yes calm SPEECH: Yes normal speech THOUGHT PROCESS: Normal thought process present Skin: COMMON NORMALS: no rashes or lesions noted GENERAL SKIN EXAM: no rashes or lesions noted Course Vital Signs: Vital signs: Vital Signs Temperature 98.5 F 10/26/20 21:00 Pulse Rate 66 10/26/20 21:00 Respiratory Rate 18 10/26/20 21:00 Blood Pressure 104/66 10/26/20 21:00 Pulse Oximetry 96 10/26/20 21:00 MDM - Nausea/Vomiting/Diarrhea MDM Narrative: Medical decision making narrative: Patient came to the ER with nausea and vomiting for a week. He has electrolyte abnormalities sodium 123, creatinine 2.6, BUN 41. These are all significantly above his baseline. He was given IV fluids and Zofran in the ED. Discussed with Dr. Santiago who accepts for observation and fluids. He was taken back for CT with IV contrast prior to his creatinine coming back. He was given a liter of IV fluids and I discussed that with the hospitalist and recommended to give him IV hydration and continue to check his kidney function. He is aware and will follow this. Lab Data: Labs: Lab Results 10/26/20 10/26/20 10/26/20 Range/Units 16:58 16:58 16:58 WBC 8.1 (4.0-10.0) 10^3/ uL RBC 4.39 (4.1-5.3) 10^6/u L Hgb 12.6 (11.7-16.6) g/dL Hct 37.0 L (42.0-52.0) % MCV 84.3 (80-94) fL MCH 28.7 (28.0-34.0) pg MCHC 34.1 (30.0-36.0) g/dL RDW 13.6 (12.1-15.1) % Plt Count 319 (130-400) 10^3/c mm MPV 10.2 (7.4-10.4) fL Neut % (Auto) 70.9 % Lymph % (Auto) 19.7 % Shasta % (Auto) 6.5 % Eos % (Auto) 2.6 % Baso % (Auto) 0.2 % Neut # (Auto) 5.71 (1.8-7.7) 10^3/u L Lymph # (Auto) 1.6 (0.8-4.8) 10^3/u L [place] # (Auto) 0.5 (0.2-0.9) 10^3/u L Eos # (Auto) 0.2 (0.0-0.8) 10^3/u L Baso # (Auto) 0.0 (0.0-0.1) 10^3/u L Nucleated RBC % (a uto) 0 % Nucleated RBCs # 0.0 /100WBC Sodium 123 L (136-145) mmol/L Potassium 3.6 (3.5-5.1) mmol/L Chloride 85 L (98-107) mmol/L Carbon Dioxide 24 (22-29) mmol/L Anion Gap 17.6 (5-19) BUN 41 H (6-20) mg/dL Creatinine 2.6 H (0.7-1.2) mg/dL GFR Calculation 25.7 L (90-130) mL/min Glucose 95 (65-115) mg/dL Calculated Osmolal ity 266 L (285-295) mOsm/k g Lactate 1.1 (0.5-2.2) mmol/L Calcium 8.9 (8.5-10.5) mg/dL Total Bilirubin 0.3 (0.15-1.2) mg/dL AST 14 (0-40) U/L ALT 10 (0-41) U/L Alkaline Phosphata se 99 (40-130) IU/L Total Protein 6.8 (6.6-8.7) g/dL Albumin 3.9 (3.5-5.2) g/dL Globulin 2.9 (1.3-4.6) g/dL Lipase 40 (13-60) U/L Urine Color (Yellow) Urine Appearance (CLEAR) Urine pH (5-7) Ur Specific Gravit y (1.005-1.030) Urine Protein (Negative) Urine Glucose (UA) (Normal) Urine Ketones (Negative) Urine Blood (Negative) Urine Nitrate (Negative) Urine Bilirubin (Negative) Urine Urobilinogen (Negative) mg/dL Ur Leukocyte Mirna ase (Negative) Urine RBC (0-2) /hpf Urine WBC (0-5) /hpf Ur Squamous Epith Cells (0-5) /hpf Amorphous Sediment Urine Bacteria (NONE) /hpf Hyaline Casts /lpf 10/26/20 Range/Units 17:40 WBC (4.0-10.0) 10^3/ uL RBC (4.1-5.3) 10^6/u L Hgb (11.7-16.6) g/dL Hct (42.0-52.0) % MCV (80-94) fL MCH (28.0-34.0) pg MCHC (30.0-36.0) g/dL RDW (12.1-15.1) % Plt Count (130-400) 10^3/c mm MPV (7.4-10.4) fL Neut % (Auto) % Lymph % (Auto) % Shasta % (Auto) % Eos % (Auto) % Baso % (Auto) % Neut # (Auto) (1.8-7.7) 10^3/u L Lymph # (Auto) (0.8-4.8) 10^3/u L [place]asta # (Auto) (0.2-0.9) 10^3/u L Eos # (Auto) (0.0-0.8) 10^3/u L Baso # (Auto) (0.0-0.1) 10^3/u L Nucleated RBC % (a uto) % Nucleated RBCs # /100WBC Sodium (136-145) mmol/L Potassium (3.5-5.1) mmol/L Chloride (98-107) mmol/L Carbon Dioxide (22-29) mmol/L Anion Gap (5-19) BUN (6-20) mg/dL Creatinine (0.7-1.2) mg/dL GFR Calculation (90-130) mL/min Glucose (65-115) mg/dL Calculated Osmolal ity (285-295) mOsm/k g Lactate (0.5-2.2) mmol/L Calcium (8.5-10.5) mg/dL Total Bilirubin (0.15-1.2) mg/dL AST (0-40) U/L ALT (0-41) U/L Alkaline Phosphata se (40-130) IU/L Total Protein (6.6-8.7) g/dL Albumin (3.5-5.2) g/dL Globulin (1.3-4.6) g/dL Lipase (13-60) U/L Urine Color Straw (Yellow) Urine Appearance Clear (CLEAR) Urine pH 5 (5-7) Ur Specific Gravit y 1.005 (1.005-1.030) Urine Protein Neg (Negative) Urine Glucose (UA) Norm (Normal) Urine Ketones Negative (Negative) Urine Blood Trace H (Negative) Urine Nitrate Negative (Negative) Urine Bilirubin Neg (Negative) Urine Urobilinogen Norm (Negative) mg/dL Ur Leukocyte Mirna ase Negative (Negative) Urine RBC 0-4 H (0-2) /hpf Urine WBC 0-4 H (0-5) /hpf Ur Squamous Epith Cells 0-4 H (0-5) /hpf Amorphous Sediment Not Reportable Urine Bacteria 1+ H (NONE) /hpf Hyaline Casts 0-4 H /lpf Discharge Plan Discharge Admit Provider: Kajal Santiago Condition: Good Coding Level of Care Code ED Coil Winding Supervisor for Chg Fwd Exam Comprehensive
[2020-10-26] MEDS: iohexol 300 mg/mL 100 mL Btl IV (16:29)
[2020-10-26 17:03] LABS: Basophils % 0.2 %; Eosinophils # 0.2 10^3/uL (0.0-0.8); Eosinophils % 2.6 %; Hemoglobin 12.6 g/dL (11.7-16.6); Lymphocytes # 1.6 10^3/uL (0.8-4.8); Lymphocytes % 19.7 %; Mean Corpuscular HGB Conc 34.1 g/dL (30.0-36.0); Mean Corpuscular Hemoglobin 28.7 pg (28.0-34.0); Mean Corpuscular Volume 84.3 fL (80-94); Mean Platelet Volume 10.2 fL (7.4-10.4); Monocytes # 0.5 10^3/uL (0.2-0.9); Monocytes % 6.5 %; Neutrophils # 5.71 10^3/uL (1.8-7.7); Neutrophils % 70.9 %; Nucleated Red Blood Cells % 0 %; Platelet Count 319 10^3/cmm (130-400); Red Blood Count 4.39 10^6/uL (4.1-5.3); Red Cell Distribution Width 13.6 % (12.1-15.1); White Blood Count 8.1 10^3/uL (4.0-10.0)
[2020-10-26 17:25] LABS: Alanine Aminotransferase 10 U/L (0-41); Albumin Level 3.9 g/dL (3.5-5.2); Alkaline Phosphatase 99 IU/L (40-130); Anion Gap 17.6 (5-19); Aspartate Amino Transferase 14 U/L (0-40); Blood Urea Nitrogen 41 mg/dL (6-20); Calcium 8.9 mg/dL (8.5-10.5); Carbon Dioxide 24 mmol/L (22-29); Chloride 85 mmol/L (98-107); Globulin 2.9 g/dL (1.3-4.6); Glomerular Filtration Rate 25.7 mL/min (90-130); Glucose 95 mg/dL (65-115); Lipase 40 U/L (13-60); Osmolality Calculated 266 mOsm/kg (285-295); Potassium 3.6 mmol/L (3.5-5.1); Sodium 123 mmol/L (136-145); Total Bilirubin 0.3 mg/dL (0.15-1.2); Total Protein 6.8 g/dL (6.6-8.7)
[2020-10-26 17:36] LABS: Lactate (Lactic Acid level) 1.1 mmol/L (0.5-2.2)
[2020-10-26 18:10] LABS: Bilirubin Urine Neg (Negative); Blood Urine Trace (Negative); Glucose Urine UA Norm (Normal); Ketones Urine Negative (Negative); Leukocyte Esterase Urine Negative (Negative); Nitrate Urine Negative (Negative); Protein Urine Neg (Negative); Specific Gravity, Urine 1.005 (1.005-1.030); Urine Appearance Clear (CLEAR); Urine Color Straw (Yellow); Urobilinogen Urine Norm (Negative); pH Urine 5 (5-7)
[2020-10-26 18:11] LABS: Add Urine Microscopic? YES; Bacteria Urine 1+ /hpf; Hyaline Casts Urine 0-4 /lpf; RBC Urine 0-4 /hpf (0-2); Squamous Epithelial Cell Urine 0-4 /hpf (0-5); WBC Urine 0-4 /hpf (0-5)
[2020-10-26] MEDS: sodium chloride 0.9% 1,000 ML 999 ML IV (18:57)
[2020-10-26] MEDS: ondansetron 2 mg/ML SDV 2 mL 4 MG IVP (19:57)
--- NOTE | 2020-10-26 21:43 | PM.HP ---
Providers/Chief Complaint Admitting Physician: Kajal Santiago Primary Care Provider: AUBREY Moses Chief Complaint: throwning up 1wk , can't keep anything down History of Present Illness 55 year old with past medical history of hypertension, dyslipidemia, and TIA who is presenting to the ER with 1 week history of abdominal pain nausea and vomiting. Patient stated symptoms started shortly after incarceration at [place]. He was seen by telehealth visit on 10/22, during which time he was prescribed zofran. He stated his symptoms did not improve during which time he was seen at [facility] clinic. He was given IM antiemetics and directed to ER. Upon arrival his initial laboratory work up showed a 8.1>15.5/47.3<287. BMP showed 123/3.6/85/24/41/2.6 ad a glucose of 95. Most recent creatinine of 1.5 on 11/2019. CT abd/pelvis was then performed which did not show any acute abnormality. Patient was started on IVF and admitted to hospital. Of note he denied any fever however noted chills. While at [place] he denied any bloody stool however here on arrival noted 1 episode of dark blood tinged stool 3-4 days prior with no recurrence. No chest pain or dyspnea. While in ER he was able to tolerate oral intake. No episode of nausea or vomiting. Review of Systems General: Reports: 10 or more systems reviewed and unremarkable except in HPI and below Medications/Allergies Home Medications Medication Instructions Recorded Confirmed Last Taken Type acetaminophen [Tylenol Extra 1,000 mg PO PRN 11/25/19 10/26/20 11/24/19 History Strength] aspirin 325 mg PO DAILY #90 tab 11/25/19 10/26/20 Unknown Rx sildenafil [Viagra] 100 mg PO DAILY PRN 11/25/19 10/26/20 Unknown History atorvastatin 20 mg tablet 20 mg PO DAILY #30 tab 07/30/20 10/26/20 Unknown Rx lisinopril 20 1 tab PO DAILY #30 tab 07/30/20 10/26/20 10/26/20 Rx mg-hydrochlorothiazide 25 mg tablet polyethylene glycol 3350 17 17 g PO DAILY PRN #238 g 10/22/20 10/26/20 Unknown Rx gram/dose oral powder ondansetron HCl 4 mg tablet 4 mg PO Q6H PRN #20 tab 03/22/21 03/22/21 03/22/21 Rx pantoprazole 40 mg tablet,delayed 40 mg PO DAILY 30 Days #30 tab 10/26/20 10/26/20 10/26/20 Rx release Allergies Allergy/AdvReac Type Severity Reaction Status Date / Time No Known Allergies Allergy Verified 10/26/20 13:39 PFSH Acute PFSH: Medical History Essential (primary) hypertension Mixed hyperlipidemia Personal history of nicotine dependence Surgical History (Updated 10/27/20 @ 04:04 by Kajal Santiago MD) History of appendectomy No pertinent past surgical history Family History Other Diabetes Hypertension Social History Smoking and tobacco status: current every day smoker Lives independently: Yes Household members: family Housing: House Current gender identity: Male Vitals/I&O/Wt Last Vital Signs Temp 97.9 F 10/26/20 23:53 Pulse 78 10/26/20 23:53 Resp 18 10/26/20 23:53 BP 96/62 10/26/20 23:53 Pulse Ox 94 10/26/20 23:53 10/26/20 10/26/20 10/27/20 14:59 22:59 06:59 Intake Total 1778 / 1778 Balance 1778 / 1778 Weight last 48 hrs Weight 79.379 kg Physical Exam Narrative: EXAM NARRATIVE: General : Alert, awake no distress HEENT Grossly unremarkable Chest: Non-labored respiration CVS : RRR ABD: Tenderness to palpation in mid-left upper quadrant Skin: unremarkable Ext: No edema Data : 10/26/20 16:58 10/26/20 16:58 A&P Assessment and plan (1) Nausea and vomiting: Status: Acute Qualifiers: Vomiting type: unspecified Vomiting Intractability: unspecified Qualified Code(s): R11.2 - Nausea with vomiting, unspecified (2) Essential (primary) hypertension: Status: Chronic (3) Mixed hyperlipidemia: Status: Chronic Nausea, vomiting suspected gastroenteritis - CT abd/pelvis - no acute abnormality - Tolerating full liquid diet - Advance as tolerated - Zofran prn for nausea - IVF as below - No recurrence of blood bm - HB stable - Likely would benefit form outpatient scope Acute renal failure - Suspected on CKD as cr 1.5 in 2019 - NS at 75 cc/hr - Repeat in am - Hold ayleen/hctz - If no improvement consider nephro consult - Was given contrast with imaging - may need repeat BMP in 3-4days Hypovolemic Hyponatremia - Started on IVF - Repeat BMP in am Hx of Hypertension - Holding anti-hypertensive for now Dyslipidemia - Verify home dose and resume Tobacco abuse - Nicotine patch PRN GI ppx - Pepcid 20 mg PO BID DVT ppx - SCD only - Consider heparin if no gi bleed or drop in hb Attestations Medical Necessity Statement*: anticipate less than 2 midnight stay in hospital for eval and treatment of johnie, hyponatremia, and possible gasteroenteritis Time Spent in Patient Care: Greater than 35 minutes (>than 50% of time spent in counselling and/or direct pt care on unit). 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
[2020-10-26] MEDS: sodium chloride 0.9% 1,000 ML 75 ML IV (22:29)
[2020-10-27 04:11] VITALS: BP 98/65; PULSE 76; RESP 18; TEMP 36.7; O2SAT 94
[2020-10-27 06:22] LABS: Basophils % 0.5 %; Eosinophils # 0.7 10^3/uL (0.0-0.8); Eosinophils % 8.1 %; Hematocrit 35.9 % (42.0-52.0); Lymphocytes # 1.6 10^3/uL (0.8-4.8); Mean Corpuscular HGB Conc 33.4 g/dL (30.0-36.0); Mean Corpuscular Hemoglobin 28.3 pg (28.0-34.0); Mean Corpuscular Volume 84.7 fL (80-94); Mean Platelet Volume 10.4 fL (7.4-10.4); Monocytes # 0.7 10^3/uL (0.2-0.9); Monocytes % 8.5 %; Neutrophils # 5.37 10^3/uL (1.8-7.7); Neutrophils % 63.5 %; Nucleated Red Blood Cells % 0 %; Platelet Count 304 10^3/cmm (130-400); Red Blood Count 4.24 10^6/uL (4.1-5.3); Red Cell Distribution Width 13.7 % (12.1-15.1); White Blood Count 8.4 10^3/uL (4.0-10.0)
[2020-10-27 06:45] LABS: Alanine Aminotransferase 12 U/L (0-41); Albumin Level 3.6 g/dL (3.5-5.2); Alkaline Phosphatase 101 IU/L (40-130); Anion Gap 12.8 (5-19); Aspartate Amino Transferase 17 U/L (0-40); Blood Urea Nitrogen 33 mg/dL (6-20); Calcium 8.4 mg/dL (8.5-10.5); Carbon Dioxide 23 mmol/L (22-29); Chloride 94 mmol/L (98-107); Globulin 3.1 g/dL (1.3-4.6); Glomerular Filtration Rate 31.1 mL/min (90-130); Glucose 100 mg/dL (65-115); Osmolality Calculated 269 mOsm/kg (285-295); Potassium 3.8 mmol/L (3.5-5.1); Sodium 126 mmol/L (136-145); Total Bilirubin 0.3 mg/dL (0.15-1.2); Total Protein 6.7 g/dL (6.6-8.7)
[2020-10-27 07:23] LABS: Procalcitonin 0.09 ng/mL (0-0.5)
[2020-10-27 07:34] LABS: Lipase 122 U/L (13-60)
[2020-10-27 07:57] VITALS: BP 96/56; PULSE 65; RESP 18; TEMP 36.9; O2SAT 96
[2020-10-27] MEDS: famotidine 20 mg Tablet PO ×2 (09:03→17:38)
--- NOTE | 2020-10-27 11:05 | PC.CHAP ---
Pastoral Care Encounter/Spiritual Assessment Type of Contact [] Declined scratch finisher visit [] Patient/Family/Request visit [] Outpatient visit [] Follow-up visit [] Physician referral [] Code/Alert [x] Routine visit [] Staff referral [] Actively dying [] Patient sleeping [] Family support [] [] Out of room [] Palliative care [] [] Receiving care in room [] Pre-surgical visit [] Trauma [] Long length of stay [] ICU visit [] Other: Relational/Emotional Strength [x] Patient feels connected with others/family/visitors/staff [] Distress [] Loneliness/isolation [] Abandonment Spirituality of Patient [x] Person of Stephie [] Attends Sikhism of their Stephie [x] Believes in Prayer [] Reads Bible or Worship materials [] There are Spiritual issues to be addressed Regulatory Affairs Coordinator Interventions x[x] Prayer [x] Active listening [] Non-anxious presence [] Spiritual/emotional support [] Crisis/trauma care [] Spiritual counseling [] Bereavement support [] Provided bereavement packet [] Provided Bible/devotional materials [] Provided toy/stuffed animal, coloring book to patient or family member [] Provided Communion [] Anointing/[place] [] Salvation [] Completed spiritual assessment [] Other: Impact on Illness or Injury [] Angry [] Fearful [] Anxious [] Often cries [] Exhaustion [] Unable to work [] Unable to attend anabaptism [] Unable to walk/stand [] Unable to read [] Unable to drive [] Unable to eat/drink [] Unable to sleep [] Unable to be with family [] Patient intubated [] Other: Summary patient having lots of stomach pain Time spent with patient 10 min
[2020-10-27 12:00] VITALS: BP 93/53; PULSE 64; RESP 17; TEMP 37.4; O2SAT 96
--- NOTE | 2020-10-27 12:29 | PC.NURSE ---
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
[2020-10-27] MEDS: sodium chloride 0.9% 1,000 ML 75 ML IV (12:32)
--- NOTE | 2020-10-27 13:44 | P.PN_ITS ---
Subjective Subjective: Interval history: The patient reports feeling better. Currently no nausea or vomiting. Abdominal pain has improved significantly. Denies fever or chills. No chest pain, shortness of breath, cough, palpitations. No dysuria. Medications: Reviewed: Yes Medication Review Details: Generic Name Dose Route Start Last Admin Trade Name Yazmin PRN Reason Stop Dose Admin Famotidine 20 mg 10/27/20 09:00 10/27/20 09:03 Famotidine 20 Mg Tablet PO 20 mg BID RICARDO Administration Sodium Chloride 1,000 mls @ 75 ml s/hr 10/26/20 21:45 10/27/20 12:32 Sodium Chloride 0.9% IV 75 mls/hr .[id number] RICARDO Administration Vitals/I&O/Wt Last Vital Signs Temp 99.3 F 10/27/20 12:00 Pulse 64 10/27/20 12:00 Resp 17 10/27/20 12:00 BP 93/53 10/27/20 12:00 Pulse Ox 96 10/27/20 12:00 10/26/20 10/27/20 10/27/20 22:59 06:59 14:59 Intake Total 1778 / 1778 1480 / 1480 Output Total 400 / 400 250 / 250 Balance 1778 / 1778 -400 / 1378 1230 / 1230 Weight last 48 hrs Weight 79.379 kg Physical Exam Narrative: EXAM NARRATIVE: Awake alert oriented. No acute distress. Mood and affect are appropriate. Responses are adequate. Skin is warm and dry. Moist mucous membranes Eyes PERRL, extraocular muscles are intact Neck supple. No JVD Lungs are clear to auscultation bilaterally. No wheezes or crackles. No respiratory distress Heart S1, S2, regular Abdomen soft, nontender, bowel sounds are present Extremities no edema cyanosis or calf tenderness bilaterally Normal speech Neuro exam is nonfocal. Data : 10/27/20 05:50 10/27/20 05:50 A&P Assessment and plan (1) Nausea and vomiting: Status: Acute Qualifiers: Vomiting type: unspecified Vomiting Intractability: unspecified Qualified Code(s): R11.2 - Nausea with vomiting, unspecified (2) Essential (primary) hypertension: Status: Chronic (3) Mixed hyperlipidemia: Status: Chronic Nausea, vomiting suspected gastroenteritis - CT abd/pelvis - no acute abnormality - Tolerating full liquid diet - Advance as tolerated - Zofran prn for nausea - IVF as below - No recurrence of blood bm - HB stable - Likely would benefit form outpatient scope Acute renal failure - Suspected on CKD as cr 1.5 in 2019 - NS at 75 cc/hr - Repeat in am - Hold ayleen/hctz - If no improvement consider nephro consult - Was given contrast with imaging - may need repeat BMP in 3-4days Hypovolemic Hyponatremia - Started on IVF - Repeat BMP in am Hx of Hypertension - Holding anti-hypertensive for now Dyslipidemia - Verify home dose and resume Tobacco abuse - Nicotine patch PRN GI ppx - Pepcid 20 mg PO BID DVT ppx - SCD only - Consider heparin if no gi bleed or drop in hb [place] Nausea and vomiting. Suspected probably viral acute gastroenteritis. Currently symptoms are improving. Continue current management and IV fluids. Continue monitoring chemistry panel. Acute kidney injury. Some improvement of the kidney function today. CT showed that he has a right kidney atrophy. Possible chronic kidney disease. Received contrast in the emergency room for CT. Continue gentle hydration. Continue monitoring renal function and electrolytes. Hyponatremia. Probably due to dehydration and kidney failure. Continue close monitoring. ? GI bleeding. Doubt. Currently he denies any hematemesis or rectal blood. We will continue close monitoring of his hemoglobin level. Stable dyslipidemia. Will increase home Lipitor dose. DVT prophylaxis. Teds and SCDs only. Anticoagulation is not started due to concerns of possible GI bleeding. Accidental AAA. Mild. Will need outpatient follow-up with the primary care iona oneal. Repeat CT in 2 years per radiology recommendations. Probably discharge tomorrow provided renal function and GI function continue improving. 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
[2020-10-27 15:27] VITALS: BP 121/78; PULSE 75; RESP 18; TEMP 36.8; O2SAT 97
[2020-10-27 19:26] VITALS: BP 134/69; PULSE 78; RESP 18; TEMP 36.7; O2SAT 96
[2020-10-27] MEDS: atorvastatin 40 mg Tablet PO (21:06)
[2020-10-27] MEDS: nicotine 21 mg Patch 1 PATCH TRANSDERMA (22:33)
[2020-10-27 23:59] VITALS: BP 148/82; PULSE 79; RESP 18; TEMP 36.6; O2SAT 98
[2020-10-28 04:36] VITALS: BP 116/69; PULSE 78; RESP 18; TEMP 36.8; O2SAT 98
[2020-10-28] MEDS: sodium chloride 0.9% 1,000 ML 75 ML IV (06:36)
[2020-10-28 07:02] LABS: Magnesium 1.8 mg/dL (1.7-2.3)
[2020-10-28 07:17] LABS: Albumin Level 3.6 g/dL (3.5-5.2); Anion Gap 14.5 (5-19); Blood Urea Nitrogen 20 mg/dL (6-20); Calcium 8.9 mg/dL (8.5-10.5); Carbon Dioxide 24 mmol/L (22-29); Chloride 99 mmol/L (98-107); Glomerular Filtration Rate 41.9 mL/min (90-130); Glucose 97 mg/dL (65-115); Potassium 4.5 mmol/L (3.5-5.1); Sodium 133 mmol/L (136-145)
[2020-10-28 07:31] VITALS: BP 140/81; PULSE 82; RESP 18; TEMP 37.2; O2SAT 98
[2020-10-28] MEDS: famotidine 20 mg Tablet PO ×2 (08:52→17:55)
[2020-10-28 11:56] VITALS: BP 150/80; PULSE 83; RESP 18; TEMP 36.8; O2SAT 97
--- NOTE | 2020-10-28 14:27 | P.PN_ITS ---
Subjective Subjective: Interval history: The patient reports feeling better. Denies nausea or vomiting. Tolerating diet well. No abdominal pain. Nicotine patch has helped. He reports smoking about 2 packs/day due to extreme anxiety. He states that this is the only way he can handle the amount of stress. However at the same time he denies any homicidal or suicidal thoughts. Medications: Reviewed: Yes Medication Review Details: Generic Name Dose Route Start Last Admin Trade Name Freq PRN Reason Stop Dose Admin Atorvastatin Calci um 40 mg 10/27/20 21:00 10/27/20 21:06 Atorvastatin 40 Mg Tablet PO 40 mg BEDTIME RICARDO Administration Famotidine 20 mg 10/27/20 09:00 10/28/20 08:52 Famotidine 20 Mg Tablet PO 20 mg BID RICARDO Administration Nicotine 1 patch 10/27/20 22:16 10/27/20 22:33 Nicotine 21 Mg P atch TRANSDERMA 1 patch PRN PRN Administration NICOTINE WITHDRAW AL Vitals/I&O/Wt Last Vital Signs Temp 98.3 F 10/28/20 11:56 Pulse 83 10/28/20 11:56 Resp 18 10/28/20 11:56 BP 150/80 10/28/20 11:56 Pulse Ox 97 10/28/20 11:56 10/27/20 10/28/20 10/28/20 22:59 06:59 14:59 Intake Total 981.25 / 2461.25 480 / 480 Output Total 1920 / 2170 1320 / 3490 Balance -1920 / -690 -338.75 / -1028.75 480 / 480 Weight last 48 hrs Weight 79.379 kg Physical Exam Narrative: EXAM NARRATIVE: Awake alert oriented. No acute distress. Mood and affect are appropriate. Responses are adequate. Skin is warm and dry. Moist mucous membranes Eyes PERRL, extraocular muscles are intact Neck supple. No JVD Lungs are clear to auscultation bilaterally. No wheezes or crackles. No respiratory distress Heart S1, S2, regular Abdomen soft, nontender, bowel sounds are present Extremities no edema cyanosis or calf tenderness bilaterally Normal speech Neuro exam is nonfocal. Data : 10/27/20 05:50 10/28/20 05:32 A&P Assessment and plan (1) Nausea and vomiting: Status: Acute Qualifiers: Vomiting type: unspecified Vomiting Intractability: unspecified Qualified Code(s): R11.2 - Nausea with vomiting, unspecified (2) Essential (primary) hypertension: Status: Chronic (3) Mixed hyperlipidemia: Status: Chronic Nausea, vomiting suspected gastroenteritis - CT abd/pelvis - no acute abnormality - Tolerating full liquid diet - Advance as tolerated - Zofran prn for nausea - IVF as below - No recurrence of blood bm - HB stable - Likely would benefit form outpatient scope Acute renal failure - Suspected on CKD as cr 1.5 in 2019 - NS at 75 cc/hr - Repeat in am - Hold ayleen/hctz - If no improvement consider nephro consult - Was given contrast with imaging - may need repeat BMP in 3-4days Hypovolemic Hyponatremia - Started on IVF - Repeat BMP in am Hx of Hypertension - Holding anti-hypertensive for now Dyslipidemia - Verify home dose and resume Tobacco abuse - Nicotine patch PRN GI ppx - Pepcid 20 mg PO BID DVT ppx - SCD only - Consider heparin if no gi bleed or drop in hb [place] Nausea and vomiting. Suspected probably viral acute gastroenteritis. Currently symptoms are solving. Stop IV fluids. Monitor for another day and probably discharge him tomorrow. Acute kidney injury. Improving. CT showed that he has a right kidney atrophy. Possible chronic kidney disease. Received contrast in the emergency room for CT. Hyponatremia. Probably due to dehydration and kidney failure. Improving. ? GI bleeding. Doubt. Currently he denies any hematemesis or rectal blood. Hemodynamically stable. H&H is stable. dyslipidemia. Will increase home Lipitor dose. DVT prophylaxis. Teds and SCDs only. Anticoagulation is not started due to concerns of possible GI bleeding. Accidental AAA. Mild. Will need outpatient follow-up with the primary care team. Repeat CT in 2 years per radiology recommendations. Tobacco abuse. Counseling is provided. Nicotine patch. Anxiety. Will order small dose of Xanax. The plan of care was discussed with the patient and multidisciplinary team. Attestations Medical Necessity Statement*: Probable discharge tomorrow. 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
[2020-10-28 15:24] VITALS: BP 151/92; PULSE 81; RESP 18; TEMP 37.2; O2SAT 98
[2020-10-28] MEDS: ALPRAZolam 0.25 mg Tablet 0.125 MG PO (15:26)
[2020-10-28 19:13] VITALS: BP 149/89; PULSE 93; RESP 18; TEMP 36.8; O2SAT 98
[2020-10-28] MEDS: atorvastatin 40 mg Tablet PO (21:29)
[2020-10-28] MEDS: nicotine 21 mg Patch 1 PATCH TRANSDERMA (21:30)
[2020-10-28 23:58] VITALS: BP 157/93; PULSE 95; RESP 18; TEMP 36.7; O2SAT 95
[2020-10-29 03:56] VITALS: BP 148/86; PULSE 92; RESP 18; TEMP 36.7; O2SAT 95
[2020-10-29 05:55] LABS: Basophils % 0.4 %; Eosinophils # 0.7 10^3/uL (0.0-0.8); Eosinophils % 7.6 %; Hematocrit 35.1 % (42.0-52.0); Hemoglobin 11.6 g/dL (11.7-16.6); Lymphocytes # 1.5 10^3/uL (0.8-4.8); Lymphocytes % 16.4 %; Mean Corpuscular Hemoglobin 28.6 pg (28.0-34.0); Mean Corpuscular Volume 86.7 fL (80-94); Mean Platelet Volume 9.9 fL (7.4-10.4); Monocytes # 0.8 10^3/uL (0.2-0.9); Monocytes % 8.7 %; Neutrophils % 66.6 %; Nucleated Red Blood Cells % 0 %; Platelet Count 273 10^3/cmm (130-400); Red Blood Count 4.05 10^6/uL (4.1-5.3); Red Cell Distribution Width 13.6 % (12.1-15.1)
[2020-10-29 06:23] LABS: Magnesium 1.9 mg/dL (1.7-2.3)
[2020-10-29 06:24] LABS: Albumin Level 3.6 g/dL (3.5-5.2); Anion Gap 12.5 (5-19); Blood Urea Nitrogen 11 mg/dL (6-20); Calcium 8.9 mg/dL (8.5-10.5); Carbon Dioxide 24 mmol/L (22-29); Chloride 100 mmol/L (98-107); Glomerular Filtration Rate 52.4 mL/min (90-130); Glucose 93 mg/dL (65-115); Phosphorus 2.8 mg/dL (2.5-4.5); Potassium 4.5 mmol/L (3.5-5.1); Sodium 132 mmol/L (136-145)
[2020-10-29 07:53] VITALS: BP 148/76; PULSE 76; RESP 18; TEMP 36.8; O2SAT 95
[2020-10-29] MEDS: famotidine 20 mg Tablet PO (08:42)
--- NOTE | 2020-10-29 11:41 | PM.PN ---
Subjective Subjective: Interval history: Overall is feeling and looking better. Reports lower abdominal pain. He had a small bowel movement without blood yesterday. However he still concerned about recent rectal blood. No nausea or vomiting. Anxiety is much better today. Only required 1 small dose of Xanax. No fever or chills. Denies dizziness or lightheadedness. Medications: Reviewed: Yes Medication Review Details: Generic Name Dose Route Start Last Admin Trade Name Freq PRN Reason Stop Dose Admin Alprazolam 0.125 mg 10/28/20 08:49 10/28/20 15:26 Alprazolam 0.25 Mg Tablet PO 0.125 mg TID PRN Administration ANXIETY Atorvastatin Calci um 40 mg 10/27/20 21:00 10/28/20 21:29 Atorvastatin 40 Mg Tablet PO 40 mg BEDTIME RICARDO Administration Famotidine 20 mg 10/27/20 09:00 10/29/20 08:42 Famotidine 20 Mg Tablet PO 20 mg BID RICARDO Administration Nicotine 1 patch 10/27/20 22:16 10/28/20 21:30 Nicotine 21 Mg P atch TRANSDERMA 1 patch PRN PRN Administration NICOTINE WITHDRAW AL Vitals/I&O/Wt Last Vital Signs Temp 98.2 F 10/29/20 07:53 Pulse 76 10/29/20 07:53 Resp 18 10/29/20 07:53 BP 148/76 10/29/20 07:53 Pulse Ox 95 10/29/20 07:53 10/28/20 10/29/20 10/29/20 22:59 06:59 14:59 Intake Total 360 / 360 Output Total 1670 / 1670 900 / 2570 Balance -1670 / -1190 -900 / -2090 360 / 360 Physical Exam Narrative: EXAM NARRATIVE: Awake alert oriented. No acute distress. Mood and affect are appropriate. Responses are adequate. Skin is warm and dry. Moist mucous membranes Eyes PERRL, extraocular muscles are intact Neck supple. No JVD Lungs are clear to auscultation bilaterally. No wheezes or crackles. No respiratory distress Heart S1, S2, regular Abdomen soft, minimally tender, generalized, bowel sounds are present. No guarding or rebound tenderness. Extremities no edema cyanosis or calf tenderness bilaterally Normal speech Neuro exam is nonfocal. Data : 10/29/20 05:43 10/29/20 05:43 A&P Assessment and plan (1) Nausea and vomiting: Status: Acute Qualifiers: Vomiting type: unspecified Vomiting Intractability: unspecified Qualified Code(s): R11.2 - Nausea with vomiting, unspecified (2) Essential (primary) hypertension: Status: Chronic (3) Mixed hyperlipidemia: Status: Chronic Nausea, vomiting suspected gastroenteritis - CT abd/pelvis - no acute abnormality - Tolerating full liquid diet - Advance as tolerated - Zofran prn for nausea - IVF as below - No recurrence of blood bm - HB stable - Likely would benefit form outpatient scope Acute renal failure - Suspected on CKD as cr 1.5 in 2019 - NS at 75 cc/hr - Repeat in am - Hold ayleen/hctz - If no improvement consider nephro consult - Was given contrast with imaging - may need repeat BMP in 3-4days Hypovolemic Hyponatremia - Started on IVF - Repeat BMP in am Hx of Hypertension - Holding anti-hypertensive for now Dyslipidemia - Verify home dose and resume Tobacco abuse - Nicotine patch PRN GI ppx - Pepcid 20 mg PO BID DVT ppx - SCD only - Consider heparin if no gi bleed or drop in hb [place] Nausea and vomiting. Suspected probably viral acute gastroenteritis. Currently symptoms are solving. IV fluids are discontinued. Monitor for another day and probably discharge him tomorrow. Acute kidney injury, possible DONNELL. Resolved. CT showed that he has a right kidney atrophy. Possible chronic kidney disease. Hyponatremia. Probably due to dehydration and kidney failure. Improving. ? Recent GI bleeding. Doubt. . Hemodynamically stable. H&H is stable. Discussed with the nurse. Will wait for the next bowel movement. If it is bloody will consider additional evaluations. Otherwise will refer him to see a GI specialist after discharge. We will recheck his CBC in the morning. Constipation. The abdominal pain could be related to constipation. Ordering docusate and as needed milk of magnesia. Dyslipidemia. Lipitor. DVT prophylaxis. Teds and SCDs only. Anticoagulation is not started due to concerns of possible GI bleeding. Accidental AAA. Mild. Will need outpatient follow-up with the primary care team. Repeat CT in 2 years per radiology recommendations. Tobacco abuse. Counseling is provided. Nicotine patch. Anxiety. Xanax as needed. The plan of care was discussed with the patient and multidisciplinary team. Attestations Medical Necessity Statement*: Holding due to ongoing abdominal pain, constipation, patient is concerned about rectal blood. 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
[2020-10-29 12:00] VITALS: BP 187/78; PULSE 96; RESP 18; TEMP 37; O2SAT 96
[2020-10-29 15:40] VITALS: BP 173/90; PULSE 90; RESP 17; TEMP 36.9; O2SAT 97
--- NOTE | 2020-10-29 18:58 | PC.NURSE ---
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 EDUC. PT THAT DR WANTED HIM TO HAVE A BM, R/T HIS C/O BLOOD IN HIS STOOL PRIOR TO THIS VISIT. PT STATED, I THINK I WILL HAVE A BM ON MY OWN, MY STOMACH IS REALLY FEELING BETTER, I THINK I JUST NEEDED TO EAT DINNER . WAS NOTIFIED.
[2020-10-29 20:00] VITALS: BP 172/96; PULSE 96; RESP 18; TEMP 36.8; O2SAT 98
[2020-10-29] MEDS: atorvastatin 40 mg Tablet PO (21:58)
[2020-10-29] MEDS: nicotine 21 mg Patch 1 PATCH TRANSDERMA (21:58)
[2020-10-30] VITALS: BP 164/88; PULSE 84; RESP 22; TEMP 37; O2SAT 97
--- NOTE | 2020-10-30 04:53 | PC.NURSE ---
pt stated if was asleep this morning not to wake him due to having a hard time sleeping.
[2020-10-30 07:30] VITALS: BP 137/81; PULSE 73; RESP 18; TEMP 36.8; O2SAT 99
[2020-10-30] MEDS: famotidine 20 mg Tablet PO (08:19)
[2020-10-30] MEDS: docusate sodium 100 mg Capsule PO (08:19)
[2020-10-30 11:45] VITALS: BP 137/81; PULSE 73; RESP 18; TEMP 36.8; O2SAT 99
--- NOTE | 2020-10-30 14:30 | P.DS_ITS ---
Discharge Providers Date of Admission: 10/26/20 19:42 Date of Discharge: October 30, 2020 Attending Provider at Admission: Kajal Santiago Attending Provider at Discharge: Sylvester Causey Primary Care Provider: AUBREY Moses Diagnoses at Discharge Discharge Diagnosis (1) Nausea and vomiting: Status: Acute Qualifiers: Vomiting type: unspecified Vomiting Intractability: unspecified Qualified Code(s): R11.2 - Nausea with vomiting, unspecified (2) Essential (primary) hypertension: Status: Chronic (3) Mixed hyperlipidemia: Status: Chronic Reason for Visit Reason for Visit: throwning up 1wk , can't keep anything down Hospital Course Hospital Course Discharge diagnoses and problem list Please see patient's H&P and progress notes for more details. Nausea and vomiting. Suspected probably viral acute gastroenteritis. Currently symptoms have resolved. IV fluids are discontinued. The patient denies any active complaints today. He is ready for discharge. He is instructed to seek medical care if he develops any new or similar symptoms. He verbalized understanding and agreement. Acute kidney injury, possible DONNELL. Resolved. CT showed that he has a right kidney atrophy. Possible chronic kidney disease. Outpatient follow-up is recommended. Hyponatremia. Probably due to dehydration and kidney failure. Improved. Outpatient monitoring is recommended. ? Recent GI bleeding. Doubt. Hemodynamically stable. H&H is stable. Unfortunately the patient did not provide sample for testing. He also refused morning labs. Instructions are provided to follow-up with the GI specialist after discharge. Constipation. The abdominal pain could be related to constipation. Patient refused medications for constipation. Dyslipidemia. Lipitor. DVT prophylaxis. Teds and SCDs only. Anticoagulation is not started due to concerns of possible GI bleeding. Accidental AAA. Mild. Will need outpatient follow-up with the primary care team. Repeat CT in 2 years per radiology recommendations. Was discussed with t kelsea patient and he verbalized understanding and agreement with the plan of care. Referral to see vascular specialist is provided. Tobacco abuse. Counseling is provided. Physical Exam Narrative: EXAM NARRATIVE: Awake alert oriented. No acute distress. Mood and affect are appropriate. Responses are adequate. Skin is warm and dry. Moist mucous membranes Eyes PERRL, extraocular muscles are intact Neck supple. No JVD Lungs are clear to auscultation bilaterally. No wheezes or crackles. No respiratory distress Heart S1, S2, regular Abdomen soft, minimally tender, generalized, bowel sounds are present. No guarding or rebound tenderness. Extremities no edema cyanosis or calf tenderness bilaterally Normal speech Neuro exam is nonfocal. Discharge Data Data Completed and Pending: Completed Studies During Hospitalization Category Date Time Status CT abdomen pelvis w con* [id number] Stat Cat Scan 10/26/20 16:01 Completed Pending at discharge Category Date Time Status Complete Blood Co unt w/Auto AM LABS Lab 10/30/20 04:00 Ordered Renal Function Pa shawn AM LABS Lab 10/30/20 04:00 Ordered Vitals: Last Vital Signs Temp 98.3 F 10/30/20 11:45 Pulse 73 10/30/20 11:45 Resp 18 10/30/20 11:45 BP 137/81 10/30/20 11:45 Pulse Ox 99 10/30/20 11:45 Discharge Plan Discharge Patient Disposition: Home Condition: Stable Prescriptions: Continued ondansetron HCl [Zofran] 4 mg tablet 4 mg PO Q6H PRN (Reason: nausea and vomiting) Qty: 20 RF: 0 pantoprazole [Protonix] 40 mg tablet,delayed release (DR/EC) 40 mg PO DAILY 30 Days Qty: 30 RF: 0 polyethylene glycol 3350 [Miralax] 17 gram/dose powder 17 g PO DAILY PRN (Reason: constipation) Qty: 238 RF: 0 lisinopril-hydrochlorothiazide 20-25 mg tablet 1 tab PO DAILY Qty: 30 RF: 0 atorvastatin [Lipitor] 20 mg tablet 20 mg PO DAILY Qty: 30 RF: 0 acetaminophen [Tylenol Extra Strength] 500 mg Tablet 1,000 mg PO PRN RF: 0 aspirin 325 mg tablet 325 mg PO DAILY Qty: 90 RF: 0 Discontinued sildenafil [Viagra] 100 mg tablet 100 mg PO DAILY PRN (Reason: UNKNOWN) RF: 0 Discharge Orders: Discharge Order (Routine); Ordered 10/30/20 Ordered By: Sylvester Causey Referrals: Priti Davis FNP-C [Primary Care Provider] - 11/12/20 10:30 am Daniel Sanchez M.D [Physician] - 11/24/20 12:15 pm Lui Jiménez MD [Physician] - 11/27/20 9:15 am (re reported rectal bleeding) Discharge Diet: Usual diet Discharge Activity: Resume usual activity Patient Instructions: Rectal Bleeding (DC), Abdominal Aortic Aneurysm (GEN), Gastroenteritis (DC), Acute Nausea and Vomiting (DC), Hypertension (DC), Hyperlipidemia (DC) Activity Restrictions/Additional Instructions: Please seek medical evaluation if you develop any new symptoms or complaints. Discharge Attestations Time Spent in Discharge Care*: greater than 30 min Quality Metrics Clinical Quality Measures During this hospital stay, did patient experience: None Coding Level of Care Code Acute Chg FW DC note Diagnoses Nausea and vomiting R11.2 Vomiting type: unspecified Vomiting Intractability: unspecified Essential (primary) hypertension I10 Mixed hyperlipidemia E78.2
== END 2020-10-30 11:46 | disposition home or self-care (01) ==
LOC: ER 19:39 → MEDSURG 20:38
PROVIDERS: Admitting Provider Hospitalist; Emergency Provider Family Medicine; PCP Nurse Practitioner; Visit Provider Internal Medicine
DX: R11.2 Nausea with vomiting, unspecified (principal); I10 Essential (primary) hypertension; E78.2 Mixed hyperlipidemia; N17.9 Acute kidney failure, unspecified; E87.1 Hypo-osmolality and hyponatremia; K59.00 Constipation, unspecified; E78.5 Hyperlipidemia, unspecified; I71.4 Abdominal aortic aneurysm, without rupture; F17.210 Nicotine dependence, cigarettes, uncomplicated; Z86.73 Personal history of transient ischemic attack (TIA), and cerebral infarction without residual deficits; Z79.82 Long term (current) use of aspirin
CPT/HCPCS: 36415; 74177; 80053; 80069; 81001; 83605; 83690; 83735; 84145; 85025; 96361; 96374; 99285; G0378; J2405; J7030; Q9967

== ENCOUNTER → 2020-11-12 11:32 | Outpatient (BNVA) | payer OTHER, SELFPAY | PROVIDERS: PCP Nurse Practitioner; Visit Provider Nurse Practitioner Family | DX: I10 Essential (primary) hypertension (principal); E78.2 Mixed hyperlipidemia; K59.00 Constipation, unspecified; R11.0 Nausea; G47.9 Sleep disorder, unspecified; N17.9 Acute kidney failure, unspecified; K92.1 Melena; Z12.5 Encounter for screening for malignant neoplasm of prostate; Z87.448 Personal history of other diseases of urinary system; N26.1 Atrophy of kidney (terminal); I71.4 Abdominal aortic aneurysm, without rupture; R10.819 Abdominal tenderness, unspecified site; R10.811 Right upper quadrant abdominal tenderness | CPT/HCPCS: 80053; 80061; 81000; 84443; 85025; G0103 ==

== ENCOUNTER 2021-01-01 07:21 | Outpatient (CLI) | payer MEDICAID, SELFPAY ==
[2021-01-01 07:25] VITALS: BMI 27.4
--- NOTE | 2021-01-01 08:27 | ECG_ITS ---
[facility] Test Date: 2021-01-01 Pat Name: Sumit Parrish Department: Room: Gender: Male [employer]: : 1965 Requested By: Daniel Sanchez Order Number: [id number] Yashira MD: Daniel Sanchez M.D. Interpretive Statements NAME OF STUDY: LEXISCAN SESTAMIBI STRESS TEST INDICATION: [sob, ] Procedure: At the baseline, the blood pressure was 151/96mmHg with a heart rate of 64 bpm. The electrocardiogram showed normal sinus rhythm, normal axis with normal ST and T's. The Lexiscan was infused over a period of 20 seconds. A total of 0.4 mg of Lexiscan was infused. The stress phase was continued for a total of 5 minutes. Heart rate was at the end of stress phase was 95 bpm and a blood pressure of 140/87 mmHg. The EKG at the peak infusion revealed since normal sinus rhythm, occsaional PVcS with no significant ST-T wave changes. Sestamibi was injected 20 seconds after the Lexiscan infusion. Blood pressure at the end of recovery phase was 150/89 mmHg with a heart rate of 88 bpm. Conclusion: 1. Normal EKG response to Lexiscan infusion 2. No Lexiscan induced chest pain or cardiac arrhythmia. 3. Normal blood pressure and heart rate response. 4. Sestamibi/sestamibi perfusion scan pending; see separate report. Electronically Signed On 01-13-2021 17:07:48 CDT by Daniel Sanchez M.D. [id number]
--- NOTE | 2021-01-01 08:27 | NMCV_ITS ---
NM tomi perf SPECT r/s* [id number] Sumit Parrish Age: 55 Gender: M : 1965 Exam Date: 01/01/2021 08:49 Ordering Phys: Daniel Sanchez M.D ([email or web address]) Technologist: YEE Painting Exam Location: [facility] Indications: SOB STRESS TEST Please [facility] for [facility] IMAGE PROTOCOL Rest/Stress 1 Lexiscan Day Radiopharmaceutical Dose (mCi) Administration Site Administered by Rest: Tc-99m 10.9 IV YEE Mitchell Sestamibi Stress:Tc-99m 32.6 IV YEE Painting Sestamirebeka Rest: 01-Jan-2021 60 Discovery 630 Stress: 01-Jan-2021 45 Discovery 630 0.4mg Lexiscan. Images obtained in supine and prone position. SPECT RESULTS Technical Quality: Good Raw Data Analysis: Normal Image Corrections: No attenuation or motion correction applied Summed Stress Score: 1 Summed Rest Score: 0 Summed Difference Score: 1 PERFUSION FINDINGS There is small in size, partially reversible apical wall perfusion defect. This likely represents attenuation artifact vs small prior infarct with mild pericardial ischemia FUNCTIONAL RESULTS (calculated via Gated SPECT) Stress Image LV EF (%): 64 Stress EDV (mL):152 TID: 1.26 Stress ESV (mL):55 FUNCTIONAL FINDINGS: LV systolic function is normal. Elevated TID ratio of 1.26 IMPRESSIONS 1. Abnormal myocardial perfusion imaging with small in size, partially reversible apical wall perfusion defect demonstrating attenuation artifact vs small prior infarct with mild pericardial ischemia. Clinical correlation is required 2. LV systolic function is normal, however, there is elevated TID ratio of 1.26 Daniel Sanchez MD (Electronically Signed) Final Date: 05 January 2021 19:22 S
[2021-01-01] MEDS: regadenoson 0.4 Mg/5 ml Syringe IVP (09:36)
[2021-01-01 09:45] VITALS: BP 150/89; PULSE 89
== END 2021-01-01 07:22 | disposition home or self-care (01) ==
PROVIDERS: PCP Nurse Practitioner; Visit Provider Internal Medicine
DX: R06.02 Shortness of breath (principal); Z20.822 Contact with and (suspected) exposure to COVID-19
CPT/HCPCS: 78452; 87635; 93017; A9500; J2785

== ENCOUNTER 2021-01-06 12:24 | Outpatient (CLI) | payer MEDICAID, SELFPAY ==
--- NOTE | 2021-01-06 13:12 | PFTS_ITS ---
Date of Study:01/06/21 Date of Dictation: MECHANICS: Forced vital capacity (FVC) is reduced. Forced expiratory volume in one second (FEV1) is reduced. FEV1/FVC is reduced. FLOW VOLUME LOOP: There is no peak expiratory flow. The flow volume loop is somewhat consistent with fixed airway obstruction. LUNG VOLUMES: Total lung capacity (TLC) is reduced. Residual volume (RV) is normal. DIFFUSING CAPACITY FOR CARBON MONOXIDE: Normal. INTERPRETATION: The postbronchodilator spirometry is consistent with severe airflow obstruction. There is no significant postbronchodilator response. The pulmonary function tests are . The lung volumes are consistent with restrictive lung disease. Gas exchange (DLCO) is normal. MTDD
== END 2021-01-06 12:25 | disposition home or self-care (01) ==
LOC: RT 12:26
PROVIDERS: PCP Nurse Practitioner; Visit Provider Thoracic Surgery (Cardiothoracic Vascular Surgery)
DX: R06.00 Dyspnea, unspecified (principal)
CPT/HCPCS: 94060; 94726; 94729; J7611

== ENCOUNTER 2021-01-13 06:00 | Outpatient (CLI) | payer MEDICAID, SELFPAY | END 2021-01-13 06:01 | disposition home or self-care (01) | LOC: LAB 12-21 08:54 | PROVIDERS: PCP Nurse Practitioner; Visit Provider Internal Medicine | DX: N18.31 Chronic kidney disease, stage 3a (principal) | CPT/HCPCS: 80069; 82306; 82310; 83970 ==

== ENCOUNTER → 2021-02-01 13:27 | Outpatient (BNVA) | payer MEDICAID, SELFPAY | PROVIDERS: PCP Nurse Practitioner; Visit Provider Internal Medicine | DX: N18.31 Chronic kidney disease, stage 3a (principal) | CPT/HCPCS: 81003; 82570; 84156 ==

== ENCOUNTER 2022-04-01 06:00 | Outpatient (CLI) | payer MEDICAID, SELFPAY | END 2022-04-01 23:00 | LOC: RAD 06-06 12:28 | PROVIDERS: PCP Nurse Practitioner; Visit Provider Student in an Organized Health Care Education/Training Program | DX: M66.0 Rupture of popliteal cyst (principal); S83.242A Other tear of medial meniscus, current injury, left knee, initial encounter; X58.XXXA Exposure to other specified factors, initial encounter | CPT/HCPCS: 99204 ==

== ENCOUNTER → 2022-04-01 09:26 | Outpatient (BNVA) | payer MEDICAID, SELFPAY | PROVIDERS: PCP Nurse Practitioner; Visit Provider Student in an Organized Health Care Education/Training Program | DX: M66.0 Rupture of popliteal cyst (principal); S83.242A Other tear of medial meniscus, current injury, left knee, initial encounter; X58.XXXA Exposure to other specified factors, initial encounter | CPT/HCPCS: 73560; 73565; 99204 ==

== ENCOUNTER → 2022-06-20 10:35 | Outpatient (BNVA) | payer MEDICAID, SELFPAY | PROVIDERS: PCP Nurse Practitioner; Visit Provider Nurse Practitioner Family | DX: M79.604 Pain in right leg (principal) | CPT/HCPCS: 73590 ==

== ENCOUNTER → 2022-11-09 17:20 | Outpatient (BNVA) | payer MEDICAID, SELFPAY | PROVIDERS: PCP Nurse Practitioner; Visit Provider Nurse Practitioner Family | DX: I10 Essential (primary) hypertension (principal); Z12.5 Encounter for screening for malignant neoplasm of prostate; N52.9 Male erectile dysfunction, unspecified | CPT/HCPCS: 80053; 80061; 82607; 83721; 83735; 84403; 84443; 85025; G0103 ==

== ENCOUNTER → 2023-01-03 15:46 | Outpatient (BNVA) | payer MEDICAID, SELFPAY | PROVIDERS: PCP Nurse Practitioner Family; Visit Provider Nurse Practitioner Family | DX: I10 Essential (primary) hypertension (principal); L02.212 Cutaneous abscess of back [any part, except buttock and flank] | CPT/HCPCS: 87070; 87075; 87205 ==

== ENCOUNTER 2023-04-13 15:09 | Outpatient (CLI) | payer MEDICAID, SELFPAY ==
--- NOTE | 2023-04-13 15:15 | USCV_ITS ---
ParrishSumit Age: 58 Gender: M : 1965 Exam Date: 04/13/2023 15:23 Ordering Phys: Hafsa Steinberg SHIPYARD PAINTER Technologist: Alonso Pulliam Exam Location: [facility] Indication: hx of rt side cva Risk Factors: Previous Vascular Surgery: Right Brachial BP: / Left Brachial BP: / Right Left Velocity (cm/s) Spectral Plaque Velocity (cm/s) Spectral Plaque Syst/Diast Broadening Syst/Diast Broadening 79.40/ 17.60 Prox CCA 84.90 / 18.70 57.30/ 17.60 Homo Mid CCA 63.90 / 19.80 56.20/ 17.60 Homo Distal CCA 90.40 / 26.50 Hetro 51.80/ 12.10 Homo Prox ICA 76.10 / 15.40 Hetro 65.10/ 27.60 Marked Mid ICA 87.10 / 32.00 94.80/ 32.00 Distal ICA 94.80 / 35.30 120.20 ECA 103.60 1.19 ICA/CCA 1.05 Antegrade Vertebral Antegrade 86.55/ 14.35 cm/s 30.30/ 4.70 cm/s Bi Subclavian Tri 132.0 153.8 0 0 CONCLUSIONS Right ICA stenosis <50%. Moderateto advanced atheromatous plaque right carotid bulb/ICA. Left ICA stenosis <50%. Moderate atheromatous plaque left carotid bulb/ICA. Intimal thickening in the common carotid arteries and internal carotid arteries bilaterally. Normal antegrade Doppler flow noted in the right vertebral artery. Normal antegrade Doppler flow noted in the left vertebral artery. Pineda Mckenzie MD (Electronically Signed) Final Date: 14 April 2023 09:33 S
== END 2023-04-13 15:10 | disposition home or self-care (01) ==
LOC: RAD 15:11
PROVIDERS: PCP Nurse Practitioner Family; Visit Provider Nurse Practitioner Family
DX: Z86.73 Personal history of transient ischemic attack (TIA), and cerebral infarction without residual deficits (principal); R09.89 Other specified symptoms and signs involving the circulatory and respiratory systems; I65.23 Occlusion and stenosis of bilateral carotid arteries
CPT/HCPCS: 93880

== ENCOUNTER → 2023-07-11 15:57 | Outpatient (BNVA) | payer MEDICAID, SELFPAY | PROVIDERS: PCP Nurse Practitioner Family; Visit Provider Nurse Practitioner Family | DX: R09.89 Other specified symptoms and signs involving the circulatory and respiratory systems (principal); E78.2 Mixed hyperlipidemia; I10 Essential (primary) hypertension | CPT/HCPCS: 80053; 80061; 84443; 85025 ==

== ENCOUNTER → 2023-07-25 16:18 | Outpatient (BNVA) | payer MEDICAID, SELFPAY | PROVIDERS: PCP Nurse Practitioner Family; Visit Provider Nurse Practitioner Family | DX: I10 Essential (primary) hypertension (principal); N18.9 Chronic kidney disease, unspecified | CPT/HCPCS: 80048; 82043 ==

== ENCOUNTER → 2023-08-08 17:30 | Outpatient (BNVA) | payer MEDICAID, SELFPAY | PROVIDERS: PCP Nurse Practitioner Family; Visit Provider Nurse Practitioner Family | DX: N18.9 Chronic kidney disease, unspecified (principal) | CPT/HCPCS: 80048 ==

== ENCOUNTER → 2023-10-18 09:14 | Outpatient (BNVA) | payer MEDICAID, SELFPAY | PROVIDERS: PCP Nurse Practitioner Family; Visit Provider Nurse Practitioner Family | DX: R50.9 Fever, unspecified (principal) | CPT/HCPCS: 87400; 87426 ==

== ENCOUNTER 2023-11-23 09:19 | Outpatient (CLI) | payer MEDICAID, SELFPAY ==
--- NOTE | 2023-11-23 09:26 | XR_ITS ---
WS: [email or web address] Exam: XR shoulder LT min 2V* [id number] Date/Time of Exam: 11/23/2023 9:31 AM Reason For Exam: M25.512 - Pain in left shoulder No acute fracture. Minimal DJD at the glenohumeral joint and the AC joint. Normal soft tissues. Sligh t calcification along the greater tuberosity of the humerus that might indicate calcific tendinitis o r bursitis. IMPRESSION: 1. Mild DJD. No fracture. 2. Minimal soft tissue calcification along the humeral head that might indicate calcific tendinitis a nd/or bursitis.
--- NOTE | 2023-11-23 09:26 | XR_ITS ---
WS: [email or web address] Exam: XR cervical spine 3V* [id number] Date/Time of Exam: 11/23/2023 9:31 AM Reason For Exam: M54.2 - Cervicalgia Comparison 10/20/2016. No fracture or dislocation. Disc space thinning at C5-6 and C6-7 with spondylosis. Posterior elements are intact. Normal paraspinal soft tissues. The odontoid is intact. Mild sidebending with LEFT conve xity that may be positional. IMPRESSION: 1. Degenerative changes from C5-C7 as noted above. Very little change since the last exam. 2. No fracture or malalignment.
== END 2023-11-23 09:20 | disposition home or self-care (01) ==
LOC: RAD 09:22
PROVIDERS: PCP Nurse Practitioner Family; Visit Provider Nurse Practitioner Family
DX: M25.512 Pain in left shoulder (principal); M50.322 Other cervical disc degeneration at C5-C6 level; M24.112 Other articular cartilage disorders, left shoulder
CPT/HCPCS: 72040; 73030

== ENCOUNTER → 2024-01-09 16:53 | Outpatient (BNVA) | payer MEDICAID, SELFPAY | PROVIDERS: PCP Nurse Practitioner Family; Visit Provider Nurse Practitioner Family | DX: I10 Essential (primary) hypertension (principal) | CPT/HCPCS: 80053; 80061; 82607; 83735; 84443; 85025 ==

== ENCOUNTER 2024-02-01 08:23 | Outpatient (CLI) | payer MEDICAID, SELFPAY ==
--- NOTE | 2024-02-01 08:28 | MR_ITS ---
WS: [id number] MRI LEFT SHOULDER HISTORY: M25.512 - Pain in left shoulder COMPARISON: Shoulder radiograph 11/23/2023 TECHNIQUE: Multiplanar sequences of the shoulder joint are submitted. Severe AC joint arthropathy with soft tissue and bone hypertrophy encroaching upon the distal suprasp inatus muscle and tendon with deformity. Increased T2 signal surrounding the AC joint. Severe subacro mial impingement by an osteophyte from the undersurface of the distal acromion. No os acromion. Long head of the biceps tendon is appropriately positioned. The extracapsular portion of the biceps tendon contains increased signal consistent with a tear. No rotator cuff muscle atrophy. There is no edema noted. There is deformity of the distal supraspinat us muscle and tendon by the AC joint arthritis. Distal to the impingement there is significant tendin opathy noted. Infraspinatus and supraspinatus and teres minor tendons are normal. Fraying involving t he surfaces of the labrum but no tear is identified. The most significant degenerative changes at the superior labrum. Mild glenohumeral joint narrowing. MR/MR shoulder LT wo con* [id number] IMPRESSION: 1. Severe AC joint arthropathy and hypertrophy with encroachment and impingeme nt upon the distal supraspinatus muscle and tendon. 2. Severe subacromial impingement upon the supraspinatus tendon. 3. Supraspinatus tendinopathy distal to the subacromial impingement. No tendon tear. 4. No muscle atrophy or edema. 5. Extracapsular portion biceps tendon with increased signal, suspect split te ar.
--- NOTE | 2024-02-01 08:28 | MR_ITS ---
WS: [id number] MRI CERVICAL SPINE NONCONTRAST HISTORY: M54.2 - Cervicalgia COMPARISON: 10/20/2016 Technique: Multiplanar, multisequence noncontrast imaging of the cervical spine. Straightening of the normal cervical lordosis. Signal within the cervical cord is normal. Visualized posterior fossa is unremarkable. Craniocervical junction, C1 and C2 relationship, odontoid process and soft tissues are normal. C2-C3: Normal. C3-C4: Central disc osteophyte complex. Mild effacement of the ventral CSF. There is a central disc p rotrusion with bilateral facet arthritis. Mild central with moderate bilateral foraminal stenosis. C4-C5: Mild disc bulging and facet arthritis. Small foraminal osteophytes. Moderate RIGHT and mild LE FT foraminal stenosis. C5-C6: Large central to LEFT paracentral disc osteophyte causing deformity of the LEFT lateral thecal sac and cervical cord. Additional osteophytic ridging and facet joint arthritis. Severe central and bilateral foraminal stenosis. C6-C7: Mild annular disc bulge with a central small disc protrusion and osteophytic ridging. Mild yesi tral with moderate bilateral foraminal stenosis. C7-T1: Mild osteophytic ridging. No stenosis. Paraspinal soft tissue are normal. MR/MR cervical spin wo con* [id number] IMPRESSION: 1. C5-6: Large central to LEFT paracentral disc osteophyte complex deforming t he LEFT cervical cord. Severe central and bilateral foraminal stenosis. 2. C3-4, C6-7: Mild central with moderate bilateral foraminal stenosis. 3. C4-5: Moderate RIGHT and mild LEFT foraminal stenosis. 4. No acute fracture.
== END 2024-02-01 08:24 | disposition home or self-care (01) ==
LOC: RAD 08:23
PROVIDERS: PCP Nurse Practitioner Family; Visit Provider Nurse Practitioner Family
DX: G89.29 Other chronic pain (principal); M12.812 Other specific arthropathies, not elsewhere classified, left shoulder; M21.822 Other specified acquired deformities of left upper arm; M75.42 Impingement syndrome of left shoulder; M25.712 Osteophyte, left shoulder; M62.89 Other specified disorders of muscle; M25.78 Osteophyte, vertebrae; M50.01 Cervical disc disorder with myelopathy, high cervical region; M47.812 Spondylosis without myelopathy or radiculopathy, cervical region; M48.02 Spinal stenosis, cervical region; M50.321 Other cervical disc degeneration at C4-C5 level; M50.323 Other cervical disc degeneration at C6-C7 level
CPT/HCPCS: 72141; 73221

== ENCOUNTER → 2024-02-27 17:03 | Outpatient (BNVA) | payer MEDICAID, SELFPAY | PROVIDERS: PCP Nurse Practitioner Family; Visit Provider Nurse Practitioner Family | DX: M25.50 Pain in unspecified joint (principal) | CPT/HCPCS: 80053; 85025; 85651; 86140; 86308; 86618; 86666; 86757 ==

== ENCOUNTER → 2024-03-01 08:47 | Outpatient (BNVA) | payer MEDICAID, SELFPAY | PROVIDERS: PCP Nurse Practitioner Family; Visit Provider Nurse Practitioner Family | DX: R70.0 Elevated erythrocyte sedimentation rate (principal) | CPT/HCPCS: 80053; 84550; 85025; 85651; 86038; 86140; 86200; 86431 ==

== ENCOUNTER → 2024-11-13 14:23 | Outpatient (BNVA) | payer MEDICAID, SELFPAY | PROVIDERS: PCP Nurse Practitioner Family; Visit Provider Nurse Practitioner Family | DX: Z12.5 Encounter for screening for malignant neoplasm of prostate (principal); E11.65 Type 2 diabetes mellitus with hyperglycemia | CPT/HCPCS: 80053; 80061; 83036; 84443; 85025; G0103 ==

== ENCOUNTER 2024-11-26 13:35 | Outpatient (CLI) | payer MEDICAID, SELFPAY ==
--- NOTE | 2024-11-26 12:00 | CT_ITS ---
WS: [email or web address] LDCT LUNG CANCER SCREENING HISTORY: F17.210 - Nicotine dependence, cigarettes, uncomplicated TECHNIQUE: Axial imaging performed from the apices to 1 cm below the costophrenic angles. Coronal and sagittal reformats are submitted with axial MIP series. All CT scans at [facility] use at least one of these dose optimization techniques: automated exposure control; mA and/or kV adjustment per patient size (includes targeted exams where dose is matched to clinical indication); or iterative reconstruction. DLP: 68.69 mGy.cm DIvol: Mean CTDIvol: 1.60 (mGy) COMPARISON: 10/09/2011 Diagnostic quality: Satisfactory Lungs: Mild bilateral scattered groundglass attenuation and hazy opacifications, similar to the prior study. No dense areas of consolidation. Few benign granulomata. Nodular opacification LEFT upper lobe towards the lingula measures 1.5 x 1.2 cm. This nodular opacification is new since the prior examination. 3 mm nodule along the short fissure has increased in size since 2012. Benign scattered granulomata. Heart: Mild cardiomegaly.. Other findings: Mild atherosclerosis aorta. No pathologic lymph nodes. No adrenal mass. Thoracic spondylosis. CT/CT lung screening [id number] IMPRESSION: LUNG-RADS: 4B-Suspicious FOLLOW UP: Chest CT with or without contrast OTHER FINDINGS (S MODIFIER): None.
== END 2024-11-26 13:36 | disposition home or self-care (01) ==
PROVIDERS: PCP Nurse Practitioner Family; Visit Provider Nurse Practitioner Family
DX: Z12.2 Encounter for screening for malignant neoplasm of respiratory organs (principal); F17.210 Nicotine dependence, cigarettes, uncomplicated; R91.8 Other nonspecific abnormal finding of lung field; J84.10 Pulmonary fibrosis, unspecified; I51.7 Cardiomegaly; I70.0 Atherosclerosis of aorta; M47.894 Other spondylosis, thoracic region
CPT/HCPCS: 71271

== ENCOUNTER 2025-01-02 09:44 | Outpatient (CLI) | payer MEDICAID, SELFPAY ==
[2025-01-02] MEDS: iohexol 350 mg/mL 500 mL Btl (per mL) IV (10:10)
--- NOTE | 2025-01-02 11:00 | CTR_ITS ---
PROCEDURE INFORMATION: Exam: CT Chest With Contrast; Diagnostic Exam date and time: 01/02/2025 10:08 AM Age: 59 years old Clinical indication: Condition or disease; Lung condition and disease; Pulmonary nodule, solitary; Additional info: R91.1 - solitary pulmonary nodule TECHNIQUE: Imaging protocol: Diagnostic computed tomography of the chest with contrast. Radiation optimization: All CT scans at this facility use at least one of these dose optimization techniques: automated exposure control; mA and/or kV adjustment per patient size (includes targeted exams where dose is matched to clinical indication); or iterative reconstruction. Contrast material: OMNI 350; Contrast volume: 100 ml; Contrast route: INTRAVENOUS (IV); COMPARISON: CT lung screening [id number] 11/26/2024 2:34 PM RADIATION DOSE METRICS: Total DLP (mGy-cm): 396.55 FINDINGS: Thyroid: No significant thyroid pathology. Lungs: Unchanged appearance of the lobulated opacity along the lateral aspect of the left upper lobe on series 4, image 48 measuring 2.3 x 1.0 cm in aggregate diameter. There are calcification at the edge of the abnormality. The lesion contacts the lateral chest wall with no evidence of invasion. Stable perifissural right mid lung laterally series 4, image 46. Scattered areas of ground-glass and streaky opacity are again noted, nonspecific given respiratory degradation and incomplete pulmonary expansion. Pleural spaces: No pleural effusion. Heart: No significant pathology. Coronary arteries: Coronary artery calcifications. Lymph nodes: Stable mild mediastinal lymphadenopathy (example AP window 1.4 cm short axis series 3, image 19, lower right paratracheal 1.2 cm series 3, image 18). Mild subcarinal adenopathy measuring 1.5 cm short axis. No evidence of hilar or axillary lymphadenopathy. Vasculature: No evidence of thoracic aortic aneurysm. Intraperitoneal space: No significant pathology in the imaged upper abdomen. Bones/joints: Features of both DISH and mild degenerative change noted in the spine. Soft tissues: See Lungs finding. Other findings: Evaluation limited by respiratory degradation. CT/CT chest w con* [id number] IMPRESSION: 1. Stable dominant lobulated left upper lobe pulmonary nodule and small right perifissural nodule. In absence of tissue diagnosis, three-month follow-up and/or PET scan could be performed further assessment. 2. Stable mild mediastinal lymphadenopathy.
[2025-01-02 11:16] LABS: Blood Urea Nitrogen 8 mg/dL (8-23); Glomerular Filtration Rate 56.3 mL/min (90-130)
== END 2025-01-02 09:45 | disposition home or self-care (01) ==
PROVIDERS: Radiology Neuroradiology; PCP Nurse Practitioner Family; Visit Provider Nurse Practitioner Family
DX: R91.1 Solitary pulmonary nodule (principal); R59.1 Generalized enlarged lymph nodes
CPT/HCPCS: 71260; 82565; 84520

== ENCOUNTER → 2025-01-07 14:10 | Outpatient (BNVA) | payer MEDICAID, SELFPAY | PROVIDERS: PCP Nurse Practitioner Family; Visit Provider Nurse Practitioner Family | DX: R70.0 Elevated erythrocyte sedimentation rate (principal) | CPT/HCPCS: 80053; 84550; 85651; 86140; 86160; 86162; 86235; 86255; 86376; 86431 ==

== ENCOUNTER 2025-02-16 20:09 | Emergency (ER) | payer MEDICAID, SELFPAY ==
[2025-02-16] VITALS (7 sets, daily range): BP systolic 159–216; BP diastolic 90–123; PULSE 69–78; RESP 20; TEMP 36.6; O2SAT 96–100; BMI 28.2
--- NOTE | 2025-02-16 20:20 | ECG_ITS ---
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 Measurements Intervals [place] Rate: 78 P: 50 WA: 130 QRS: -35 QRSD: 101 T: 121 QT: 392 QTc: 447 Interpretive Statements SINUS RHYTHM LEFT AXIS DEVIATION [QRS AXIS < -30] LEFT VENTRICULAR HYPERTROPHY AND ST-T CHANGE [VOLTAGE CRITERIA PLUS ST/T ABNORMALITY] Compared to ECG 11/25/2019 17:37:27 ST (T wave) deviation now present T-wave abnormality no longer present Electronically Signed On 02-18-2025 09:58:46 CDT by Maida De Dios M.D. [email or web address]
--- NOTE | 2025-02-16 21:16 | XRR_ITS ---
PROCEDURE INFORMATION: Exam: XR Chest Exam date and time: 02/16/2025 9:49 PM Age: 59 years old Clinical indication: General weakness with hypertension TECHNIQUE: Imaging protocol: Radiologic exam of the chest. Views: 1 view. COMPARISON: 1. CT chest w con* [id number] 01/02/2025 10:[address] lung screening [id number] 11/26/2024 2:34 PM FINDINGS: Lungs: Subtle left mid lung zone nodular opacity seen to greater advantage on comparison chest CTs. No consolidation. Pleural spaces: Unremarkable. No pleural effusion. No pneumothorax. Heart/Mediastinum: Unremarkable. No cardiomegaly. Bones/joints: Mild degenerative changes along the spine and acromioclavicular joints. XR/XR chest 1V portable [id number] IMPRESSION: No acute findings.
[2025-02-16 21:28] LABS: Hematocrit 41.3 % (37-53); Hemoglobin 13.70 g/dL (11.27-16.99); Mean Corpuscular HGB Conc 33.2 g/dL (30-55); Mean Corpuscular Hemoglobin 29.4 pg (27-33); Mean Corpuscular Volume 88.6 fl (82-101); Nucleated Red Blood Cells % 0 %; Platelet Count 327 10^3/cmm (157-399); Red Blood Count 4.66 10^6/uL (3.85-5.65); White Blood Count 8.85 10^3/uL (3.29-11.43)
--- NOTE | 2025-02-16 21:37 | ED_ITS ---
HPI - General Adult 2 General: Chief complaint: General Medical Stated complaint: high bp Time Seen by Provider: 02/16/25 20:53 History of Present Illness: 59-year-old male patient with history of hypertension. He was started on lisinopril recently. He is up to 40 mg daily. He presents with hypertension. He noted that his blood pressure was high earlier in the day, took another 20 mg, and then a charge tonight was high again, took another 20 mg today. His only symptom is that of feeling tired. No chest pain, no visual changes, no dizziness or headache. No shortness of breath. No leg swelling. He has no history of coronary disease Related Data Home Medications ?Medication ?Instructions ?Recorded ?Confirmed acetaminophen 500 mg tablet 1,000 mg PO PRN 11/25/19 0 02/13/25 (Tylenol Extra Strength) aspirin 81 mg tablet,delayed 81 mg PO DAILY 04/11/23 0 02/13/25 release (Adult Low Dose Aspirin) Previous Rx's ?Medication ?Instructions ?Recorded atorvastatin 80 mg tablet 80 mg PO DAILY #30 tabs 05/01 lisinopril 20 mg tablet 20 mg PO DAILY #30 tabs 02/04 amlodipine 10 mg tablet 10 mg PO DAILY #30 tabs 02/04 10/29 Allergies Allergy/AdvReac Type Severity Reaction Status Date / Time pantoprazole (From Protonix) Allergy Intermediate lip Verified 02/13/25 08:23 swelling [facility] ED 2 PFS: Medical History Type 2 diabetes mellitus Teran's cyst, ruptured Medial meniscus tear Abdominal aortic aneurysm (AAA) Essential (primary) hypertension Mixed hyperlipidemia Surgical History History of appendectomy Family History Brother CAD (coronary artery disease) Other Diabetes Hypertension Social History Smoking and tobacco/nicotine status: current every day tobacco/nicotine user cigarettes Packs smoked per day: 1 Years cigarettes smoked: 40 Second hand smoke exposure: No Alcohol intake: never Substance/Drug Use: never Lives independently: Yes Household members: family Housing: House Marital status: Single Current occupational status: unemployed and disabled Current gender identity: Male Special sam needs: No Physical Exam 2 Const: COMMON NORMALS: no acute distress GENERAL APPEARANCE: cooperative; not ill appearing and not frail appearing HENMT: COMMON NORMALS: normocephalic, atraumatic and Normal external nose present HEAD & SCALP: normocephalic and atraumatic FACE & SINUS: normal facial exam and face symmetric NOSE: Normal external nose present Eye: COMMON NORMALS: Equal, round and reactive pupils present and EOMs intact bilaterally PUPIL: Yes Equal, round and reactive pupils present Neck/C-Spine: GENERAL: Yes trachea midline Chest: CHEST: Yes Symmetrical chest wall rise Resp: COMMON NORMALS: normal respiratory effort, No retractions, No use of accessory muscles and clear to auscultation bilaterally AUSCULTATION: clear to auscultation bilaterally Cardio: COMMON NORMALS: regular rate and regular rhythm RATE: regular rate RHYTHM: regular rhythm GI: COMMON NORMALS: Normal to inspection, nondistended, normoactive bowel sounds present Extremity: COMMON NORMALS: no pedal edema Neuro: BLAZE COMA SCALE: document GCS findings Blaze coma scale eye opening: Spontaneous Blaze coma scale verbal response: Orientated [place] coma scale motor response: [place]bey commands Blaze coma scale total score: 15 S ENSORY EXAM: Yes extremities (intact) Psych: COMMON NORMALS: speech normal SPEECH: Yes normal speech Skin: COMMON NORMALS: no rashes or lesions noted GENERAL SKIN EXAM: no rashes or lesions noted Course 2 Vital Signs: Vital signs: Vital Signs Temperature 97.9 F 02/16/25 20:11 Pulse Rate 69 02/16/25 23:00 Respiratory Rate 20 H 02/16/25 21:02 Blood Pressure 186/95 02/16/25 23:00 Pulse Oximetry 98 02/16/25 23:00 Oxygen Delivery Me thod Room Air 02/16/25 21:30 [facility] - General Adult Medical Decision Making Patient has asymptomatic hypertension at this point. Blood pressure on arrival was 216/110. He is given IV labetalol and oral amlodipine. Blood pressure now 159/90. He remains asymptomatic. His creatinine is 1.3. Other laboratory is not actionable. Chest x-ray is nonacute. He has no edema. He will be discharged on amlodipine to combine with his 40 mg of lisinopril he is taking daily. He is to check his blood pressure twice daily. He has a follow-up appointment with his doctor tomorrow. To return for any symptoms such as chest pressure, shortness of breath, headache, vision changes, etc. Lab Data 02/16/25 21:00 02/16/25 21:00 Radiology Impressions Chest X-Ray 02/16/25 21:16 IMPRESSION: No acute findings. Laboratory Results WBC 8.85 10^3/uL (3.29-11.43) 02/16/25 21:00 RBC 4.66 10^6/uL (3.85-5.65) 02/16/25 21:00 Hgb 13.70 g/dL (11.27-16.99) 02/16/25 21:00 Hct 41.3 % (37-53) 02/16/25 21:00 MCV 88.6 fl (82-101) 02/16/25 21:00 MCH 29.4 pg (27-33) 02/16/25 21: MCHC 33.2 g/dL (30-55) 02/16/25 21:00 RDW 14.6 % (12.1-15.1) 02/16/25 21:00 Plt Count 327 10^3/cmm (157-399) 02/16/25 21:00 MPV 9.6 fL (7.4-10.4) 02/16/25 21:00 Neut % (Auto) 64.3 % 02/16/25 21:00 Lymph % (Auto) 26.3 % 02/16/25 21:00 Ocean % (Auto) 5.4 % 02/16/25 21:00 Eos % (Auto) 2.9 % 02/16/25 21:00 Baso % (Auto) 0.6 % 02/16/25 21:00 Neut # (Auto) 5.69 10^3/uL (1.8-7.7) 02/16/25 21:00 Lymph # (Auto) 2.3 10^3/uL (0.8-4.8) 02/16/25 21:00 Ocean # (Auto) 0.5 10^3/uL (0.2-0.9) 02/16/25 21:00 Eos # (Auto) 0.3 10^3/uL (0.0-0.8) 02/16/25 21:00 Baso # (Auto) 0.1 10^3/uL (0.0-0.1) 02/16/25 21:00 Nucleated RBC % (auto) 0 % 02/16/25 21:00 Nucleated RBCs # 0.0 /100WBC 02/16/25 21:00 Sodium 133 mmol/L (136-145) L 02/16/25 21:00 Potassium 3.6 mmol/L (3.5-5.1) 02/16/25 21:00 Chloride 95 mmol/L (98-107) L 02/16/25 21:00 Carbon Dioxide 25 mmol/L (22-29) 02/16/25 21:00 Anion Gap 16.6 (5-19) 02/16/25 21:00 BUN 9 mg/dL (8-23) 02/16/25 21:00 Creatinine 1.3 mg/dL (0.7-1.2) H 02/16/25 21:00 GFR Calculation 56.3 mL/min (90-130) L 02/16/25 21:00 Glucose 96 mg/dL (65-115) 02/16/25 21:00 Calculated Osmolality 275 mOsm/kg (285-295) L 02/16/25 21:00 Calcium 9.5 mg/dL (8.5-10.5) 02/16/25 21:00 Phosphorus 3.4 mg/dL (2.5-4.5) 02/16/25 21:00 Magnesium 1.9 mg/dL (1.7-2.3) 02/16/25 21:00 Total Bilirubin 0.2 mg/dL (0.15-1.2) 02/16/25 21:00 AST 11 U/L (0-40) 02/16/25 21:00 ALT 10 U/L (0-41) 02/16/25 21:00 Alkaline Phosphatase 126 U/L (40-130) 02/16/25 21:00 Total Protein 7.6 g/dL (6.6-8.7) 02/16/25 21:00 Albumin 3.9 g/dL (3.5-5.2) 02/16/25 21:00 Globulin 3.7 g/dL (1.3-4.6) 02/16/25 21:00 Urine Color Yellow (Yellow) 02/16/25 20:20 Urine Appearance Clear (CLEAR) 02/16/25 20:20 Urine pH 7.0 (5-7) 02/16/25 20:20 Ur Specific [place] 1.006 (1.005-1.030) 02/16/25 20:20 Urine Protein Negative (Negative) 02/16/25 20:20 Urine Glucose (UA) Negative (Normal) 02/16/25 20:20 Urine Ketones Negative (Negative) 02/16/25 20:20 Urine Blood Negative (Negative) 02/16/25 20:20 Urine Nitrate Negative (Negative) 02/16/25 20:20 Urine Bilirubin Negative (Negative) 02/16/25 20:20 Urine Urobilinogen 0.2 mg/dL (Negative) 02/16/25 20:20 Ur Leukocyte Esterase Negative (Negative) 02/16/25 20:20 Urine RBC 0-2 /hpf (0-2) 02/16/25 20:20 Urine WBC 0-5 /hpf (0-5) 02/16/25 20:20 Ur Squamous Epith Cells 0-5 /hpf (0-5) 02/16/25 20:20 Amorphous Sediment Not Reportable 02/16/25 20:20 Urine Bacteria None seen /hpf (NONE) 02/16/25 20:20 Hyaline Casts 0-4 /lpf H 02/16/25 20:20 All radiology interpretation(s) finalized by discharge Discharge Plan Discharge Patient Disposition: Home Clinical Impression: Hypertension Condition: Stable Prescriptions: New amlodipine 10 mg tablet 10 mg PO DAILY Qty: 30 0RF No Action atorvastatin 80 mg tablet 80 mg PO DAILY Qty: 30 5RF lisinopril 20 mg tablet 20 mg PO DAILY Qty: 30 0RF aspirin [Adult Low Dose Aspirin] 81 mg tablet,delayed release (DR/EC) 81 mg PO DAILY acetaminophen [Tylenol Extra Strength] 500 mg Tablet 1,000 mg PO PRN Discharge Orders: Discharge ED (Routine); Ordered 02/16/25 Ordered By: Jhonny Barone Referrals: Hafsa Steinberg FNP [Primary Care Provider, Family Practice] - 1-3 days Patient Instructions: Hypertension (ED), Opioid Safety, Pain Management, Patient Portal & Luis Instructions Activity Restrictions/Additional Instructions: Continue your lisinopril at 40 mg (2 tabs) daily. Add amlodipine 10 mg (1 tab) daily as well. Check your blood pressure twice daily. Follow-up with your doctor as scheduled. Return for development of chest discomfort, headache, vision changes, shortness of breath, other concerning symptoms. Print Language: Trinidadian Coding Level of Care Code ED Transformation Specialist for Tory Thomas
[2025-02-16 21:40] LABS: Alanine Aminotransferase 10 U/L (0-41); Albumin Level 3.9 g/dL (3.5-5.2); Alkaline Phosphatase 126 U/L (40-130); Anion Gap 16.6 (5-19); Aspartate Amino Transferase 11 U/L (0-40); Blood Urea Nitrogen 9 mg/dL (8-23); Calcium 9.5 mg/dL (8.5-10.5); Carbon Dioxide 25 mmol/L (22-29); Chloride 95 mmol/L (98-107); Creatinine Clr Calc Pharmacy 59.8561; Globulin 3.7 g/dL (1.3-4.6); Glucose 96 mg/dL (65-115); Magnesium 1.9 mg/dL (1.7-2.3); Osmolality Calculated 275 mOsm/kg (285-295); Potassium 3.6 mmol/L (3.5-5.1); Sodium 133 mmol/L (136-145); Total Protein 7.6 g/dL (6.6-8.7)
[2025-02-16 21:41] LABS: Glucose Urine UA Negative (Normal); Nitrate Urine Negative (Negative); Specific Gravity, Urine 1.006 (1.005-1.030)
[2025-02-16] MEDS: labetalol 5 mg/mL SDV 20mL 20 MG IVP ×2 (21:41→23:17)
[2025-02-16 21:43] LABS: Add Urine Microscopic? YES
== END 2025-02-16 23:57 | disposition home or self-care (01) ==
PROVIDERS: Emergency Provider Emergency Medicine; PCP Nurse Practitioner Family
DX: I10 Essential (primary) hypertension (principal); Z79.82 Long term (current) use of aspirin; F17.210 Nicotine dependence, cigarettes, uncomplicated; E11.9 Type 2 diabetes mellitus without complications; E78.2 Mixed hyperlipidemia
CPT/HCPCS: 36415; 71045; 80053; 81001; 83735; 84100; 85025; 93005; 96374; 96375; 99285; J3490; J9999

== ENCOUNTER 2025-03-04 16:27 | Emergency (ER) | payer MEDICAID, SELFPAY ==
--- OUTSIDE RECORDS SUMMARY | 2025-03-04 16:31 | XMS_ITS | Encounter Summary ---
Author Organization [facility] Address [address] [place] [address] Phone Care Team Providers Care Bottling Line Attendant Name Role Phone Daniel Sanchez MD Primary Care Provider [phone] Encounter Details Date Type Department Care Team (Late st Contact Info) Description 11/17/2020 Orders Only [facility] [address] [place] [address] Acute kidney failure, not otherwise specified (HCC); Atrophy of kidney Social History Tobacco Use Types Packs/Day Years Used Date Smoking Tobacco: Never Assessed Sex and Gender Information Value Date Recorded Sex Assigned at Not on file Legal Sex Male 10:39 AM EDT Gender Identity Not on file Sexual Orientation Not on file documented as of this encounter Plan of Treatment Not on file documented as of this encounter Visit Diagnoses Diagnosis Acute kidney failure, not otherwise specified (HCC) Atrophy of kidney documented in this encounter Care Teams Bottling Line Attendant Relationship Specialty Start Date End Date Daniel Sanchez MD [address] [facility] [address] [place], [place] [address] PCP - General Cardiology 01/13/21 documented as of this encounter
--- OUTSIDE RECORDS SUMMARY | 2025-03-04 16:31 | XMS_ITS | Clinical Summary ---
Author Organization [facility] Facility Address [address] [address] Care Team Providers Care Vp Account Director Name Role Phone Daniel Sanchez MD Primary Care Provider [phone] Allergies Active Allergy Reactions Criticality Noted Date Comments Pantoprazole 12/24/2020 Lip swelling Medications acetaminophen (TYLENOL) 500 MG tablet Take 1,000 mg by mouth every 6 (six) hours if needed for mild pain Active atorvastatin (LIPITOR) 20 MG tablet Take 20 mg by mouth 1 (one) time each day Active lisinopril-hydro CHLOROthiazide (PRINZIDE,ZESTOR ETIC) 20-25 MG per tablet Take 1 tablet by mouth 1 (one) time each day Active aspirin (ST FELIPE) 81 MG EC tablet Take 81 mg by mouth 1 (one) time each day Active Active Problems No known active problems Family History Medical History Relation Comments Heart disease Brother Stroke Brother Hypertension Father Hypertension Mother Heart disease Sister Stroke Sister Autosomal Dominant Polycystic Kidney Disease Neg Hx Cancer Neg Hx Dementia Neg Hx Diabetes Neg Hx Gout Neg Hx Kidney disease Neg Hx Relation Status Comments Brother Father Mother Alive Sister Social History Tobacco Use Types Packs/Day Years Used Date Smoking Tobacco: Every Day Cigarettes Smokeless Tobacco: Never Alcohol Use Standard Drinks/Week Comments Never 0 (1 standard drink = 0.6 oz pur e alcohol) Sex and Gender Information Value Date Recorded Sex Assigned at Not on file Legal Sex Male 10:39 AM EDT Gender Identity Not on file Sexual Orientation Not on file Last Filed Vital Signs Vital Sign Reading Time Taken Comments Blood Pressure 128/72 12/24/2020 11:23 AM CDT Pulse 88 12/24/2020 11:23 AM CDT Temperature - - Respiratory Rate - - Oxygen Saturation - - Inhaled Oxygen Concentration - - Weight 80.9 kg (178 lb 4.8 oz) 12/24/2020 11:23 AM CDT Height 167.6 cm (5' 6 ) 12/24/2020 11:23 AM CDT Body Mass Index 28.78 12/24/2020 11:23 AM CDT Plan of Treatment Health Maintenance Due Date Last Done Comments Pneumococcal Vaccine: 50+ Ye ars (1 of 2 - PCV) 02/23/1983 Colorectal Cancer Screening: Annual FOBT 02/23/2013 Colorectal Cancer Screening: Colonoscopy 02/23/2013 Colorectal Cancer Screening: Sigmoidoscopy 02/23/2013 Influenza Vaccine (#1) 2025 Hepatitis B Vaccine Aged Out No longe r eligible based on patient's age to complete this topic Insurance Medicaid [place] ([id number]) [facility] Medicaid Care Teams Vp Account Director Relationship Specialty Start Date End Date Daniel Sanchez MD [address] [address] PCP - General Cardiology 01/13/21
--- NOTE | 2025-03-04 16:32 | ECG_ITS ---
[facility]: 2025-03-04 Pat Name: Sumit Parrish Department: Room: Gender: Male Incident Commander: : [id number] Requested By: Jess Alexander Order Number: [id number] Yashira MD: Daniel Sanchez M.D. Measurements Intervals Silvis Rate: 92 P: 69 WV: 118 QRS: -41 QRSD: 110 T: 82 QT: 366 QTc: 454 Interpretive Statements SINUS RHYTHM WITH SHORT WV INTERVAL LEFT AXIS DEVIATION [QRS AXIS < -30] INCOMPLETE RIGHT BUNDLE BRANCH BLOCK [90+ ms QRS DURATION, TERMINAL R IN V1/V2, 40+ ms S IN I/aVL/V4/V5/V6] NONSPECIFIC ST & T-WAVE ABNORMALITY Compared to ECG 02/16/2025 20:20:37 Short WV interval now present Incomplete right bundle-branch block now present T-wave abnormality now present Left ventricular hypertrophy no longer present ST (T wave) deviation no longer present Electronically Signed On 03-06-2025 10:25:59 CDT by Daniel Sanchez M.D. [email or web address]
--- NOTE | 2025-03-04 16:33 | XRR_ITS ---
PROCEDURE INFORMATION: Exam: XR Chest Exam date and time: 03/04/2025 4:38 PM Age: 60 years old Clinical indication: Pain; Angina pectoris; Additional info: Cp TECHNIQUE: Imaging protocol: Radiologic exam of the chest. Views: 1 view. COMPARISON: CR (CHEST, ) 02/16/2025 9:[address] 01/02/2025 FINDINGS: Lungs: Subtle opacity in the left midlung is better seen comparison chest CTs. No consolidation. Pleural spaces: Unremarkable. No pleural effusion. No pneumothorax. Heart/Mediastinum: Unremarkable. No cardiomegaly. Bones/joints: Unremarkable. XR/XR chest 1V portable [id number] IMPRESSION: No acute findings.
[2025-03-04 16:35] VITALS: BP 133/94; PULSE 86; RESP 16; TEMP 37.2; O2SAT 98; BMI 28.2
--- NOTE | 2025-03-04 16:53 | PC.PHAR ---
patient states he only takes Lisinipril . His other reeducations ran out.
--- NOTE | 2025-03-04 17:12 | ED_ITS ---
HPI - Chest Pain 2 General: Chief Complaint: Chest Pain Stated Complaint: chest pain Time Seen by Provider: 03/04/25 16:46 History of Present Illness: 60-year-old male presents emergency room with complaint of chest pain. He said chest pain intermittently for some time he states is worse when he is active it gets better about 10 to 15 minutes after he stops and rests he is a smoker and he is diabetic. Previous stress test December 2020 that time stress test read abnormal with a partially reversible apical wall perfusion defect that was commented as attenuation artifact versus small infarct with pericardial ischemia. His ejection fraction at that time was rated as normal. He did not go on to have an angiogram at that time. He has been noting that when he works outside particularly in the heat recently he will get chest pain if he stops and rest he goes away after 10 or 15 minutes today's episode is more intense. Associated symptoms: Deny abdominal pain, dyspnea or fever(s) Related Data Home Medications ?Medication ?Instructions ?Recorded ?Confirmed aspirin 81 mg tablet,delayed 81 mg PO DAILY 04/11/23 0 03/06/25 release (Adult Low Dose Aspirin) Previous Rx's ?Medication ?Instructions ?Recorded atorvastatin 80 mg tablet 80 mg PO DAILY #30 tabs 0405/01 amlodipine 10 mg tablet 10 mg PO DAILY #90 tabs 02/04 12/29 lisinopril 40 mg tablet 40 mg PO DAILY #90 tabs 02/04 12/29 isosorbide mononitrate 30 mg 30 mg PO DAILY #30 tabs 0 03/04/25 tablet,extended release 24 hr Allergies Allergy/AdvReac Type Severity Reaction Status Date / Time pantoprazole (From Protonix) Allergy Intermediate lip Verified 03/06/25 08:13 swelling Review of Systems 2 Const: Denies: fever(s) or chills Card: Denies: chest pain Resp: Denies: dyspnea GI: Denies: abdominal pain : Denies: dysuria, urinary frequency or urinary urgency Musc: Denies: neck pain or back pain Skin/Breast: Denies: rash PFSH ED 2 PFSH: Medical History Type 2 diabetes mellitus Teran's cyst, ruptured Medial meniscus tear Abdominal aortic aneurysm (AAA) Essential (primary) hypertension Mixed hyperlipidemia Surgical History History of appendectomy Family History Brother CAD (coronary artery disease) Other Diabetes Hypertension Social History Smoking and tobacco/nicotine status: current every day tobacco/nicotine user cigarettes Packs smoked per day: 1 Years cigarettes smoked: 40 Second hand smoke exposure: No Alcohol intake: never Substance/Drug Use: never Lives independently: Yes Household members: family Housing: House Marital status: Single Current occupational status: unemployed and disabled Current gender identity: Male Special sam needs: No Physical Exam 2 Const: GENERAL APPEARANCE: cooperative ORIENTATION/CONSCIOUSNESS: Yes awake, Yes oriented to person, Yes oriented to place and Yes oriented to time HENMT: COMMON NORMALS: normocephalic, atraumatic and hearing grossly normal bilaterally HEAD & SCALP: normocephalic and atraumatic Resp: COMMON NORMALS: normal respiratory effort, No retractions, No use of accessory muscles and clear to auscultation bilaterally AUSCULTATION: clear to auscultation bilaterally Cardio: COMMON NORMALS: regular rate, regular rhythm and No murmurs present (Cardio) RATE: regular rate RHYTHM: regular rhythm GI: COMMON NORMALS: Soft to palpation and No hepatosplenomegaly present A USCULTATION: Yes normoactive bowel sounds PALPATION: Yes Soft to palpation, No Tenderness to palpation present (GI), No Guarding due to palpation present (GI) and Yes No hepatosplenomegaly present Extremity: COMMON NORMALS: normal to inspection, capillary refill normal, no clubbing, cyanosis or edema, no calf tenderness and no pedal edema Neuro: SENSORIUM/ORIENTATION: Yes oriented to person, Yes oriented to place and Yes oriented to time Skin: COMMON NORMALS: no rashes or lesions noted GENERAL SKIN EXAM: no rashes or lesions noted Course 2 Vital Signs: Vital signs: Vital Signs Temperature 99.0 F 03/04/25 16:35 Pulse Rate 88 03/04/25 18:23 Respiratory Rate 19 H 03/04/25 17:39 Blood Pressure 170/100 03/04/25 18:23 Pulse Oximetry 97 03/04/25 18:23 Oxygen Delivery Me thod Room Air 03/04/25 17:39 MDM - Chest Pain Medical Decision Making Patient has exertional angina and a previously abnormal stress test. Strongly encouraged patient to be admitted but is based on his presenting history and the history of the previous abnormal stress test. He is refusing he wants to go home he says he will go to different hospital if he has recurrence of symptoms discussed with him he may actually have a heart attack and not be able to return he expressed understanding of this still wishes to go advised at any point if he wishes he can return and we will resume our evaluation. Medical Records I reviewed the patient's medical records. Lab Data I reviewed the patient's lab results. 03/04/25 17:00 03/04/25 17:00 Radiology Impressions Chest X-Ray 03/04/25 16:33 IMPRESSION: No acute findings. Laboratory Results WBC 7.55 10^3/uL (3.29-11.43) 03/04/25 17:00 RBC 4.61 10^6/uL (3.85-5.65) 03/04/25 17:00 Hgb 13.50 g/dL (11.27-16.99) 03/04/25 17:00 Hct 41.8 % (37-53) 03/04/25 17:00 MCV 90.7 fl (82-101) 03/04/25 17:00 MCH 29.3 pg (27-33) 03/04/25 17:00 MCHC 32.3 g/dL (30-55) 03/04/25 17:00 RDW 15.5 % (12.1-15.1) H 03/04/25 17:00 Plt Count 270 10^3/cmm (157-399) 03/04/25 17:00 MPV 10.0 fL (7.4-10.4) 03/04/25 17:00 Neut % (Auto) 70.2 % 03/04/25 17:00 Lymph % (Auto) 21.5 % 03/04/25 17:00 [place] % (Auto) 5.6 % 03/04/25 17:00 Eos % (Auto) 2.0 % 03/04/25 17:00 Baso % (Auto) 0.3 % 03/04/25 17:00 Neut # (Auto) 5.31 10^3/uL (1.8-7.7) 03/04/25 17:00 Lymph # (Auto) 1.6 10^3/uL (0.8-4.8) 03/04/25 17:00 [place] # (Auto) 0.4 10^3/uL (0.2-0.9) 03/04/25 17:00 Eos # (Auto) 0.2 10^3/uL (0.0-0.8) 03/04/25 17:00 Baso # (Auto) 0.0 10^3/uL (0.0-0.1) 03/04/25 17:00 Nucleated RBC % (auto) 0 % 03/04/25 17:00 Nucleated RBCs # 0.0 /100WBC 03/04/25 17:00 PT 12.70 SECONDS (12.1-14.9) 03/04/25 17:00 INR 0.89 (0.8-1.2) 03/04/25 17:00 Sodium 139 mmol/L (136-145) 03/04/25 17:00 Potassium 4.4 mmol/L (3.5-5.1) 03/04/25 17:00 Chloride 104 mmol/L (98-107) 03/04/25 17:00 Carbon Dioxide 22 mmol/L (22-29) 03/04/25 17:00 Anion Gap 17.4 (5-19) 03/04/25 17:00 BUN 10 mg/dL (8-23) 03/04/25 17:00 Creatinine 1.2 mg/dL (0.7-1.2) 03/04/25 17:00 GFR Calculation 61.6 mL/min (90-130) L 03/04/25 17:00 Glucose 110 mg/dL (65-115) 03/04/25 17:00 Calculated Osmolality 288 mOsm/kg (285-295) 03/04/25 17:00 Calcium 8.9 mg/dL (8.5-10.5) 03/04/25 17:00 Total Bilirubin 0.2 mg/dL (0.15-1.2) 03/04/25 17:00 AST 11 U/L (0-40) 03/04/25 17:00 ALT 11 U/L (0-41) 03/04/25 17:00 Alkaline Phosphatase 126 U/L (40-130) 03/04/25 17:00 Troponin T Baseline 28 ng/L (0-15) H 03/04/25 17:00 Total Protein 6.6 g/dL (6.6-8.7) 03/04/25 17:00 Albumin 4.1 g/dL (3.5-5.2) 03/04/25 17:00 Globulin 2.5 g/dL (1.3-4.6) 03/04/25 17:00 Lipase 47 U/L (13-60) 03/04/25 17:00 All radiology interpretation(s) finalized by discharge Discharge Plan Discharge Patient Disposition: Home Clinical Impression: Angina of effort, Abnormal cardiovascular stress test, HTN (hypertension) Condition: Stable Prescriptions: New isosorbide mononitrate 30 mg tablet extended release 24 hr 30 mg PO DAILY Qty: 30 0RF No Action atorvastatin 80 mg tablet 80 mg PO DAILY Qty: 30 5RF lisinopril 40 mg tablet 40 mg PO DAILY Qty: 90 1RF amlodipine 10 mg tablet 10 mg PO DAILY Qty: 90 1RF aspirin [Adult Low Dose Aspirin] 81 mg tablet,delayed release (DR/EC) 81 mg PO DAILY Discharge Orders: Discharge ED (Routine); Ordered 03/04/25 Ordered By: Richie Matthew Referrals: Hafsa Steinberg FNP [Primary Care Provider, Family Practice] Discharge Diet: Usual diet Discharge Activity: Limit activity as instructed Patient Instructions: Angina (ED), Opioid Safety, Pain Management, Patient Portal & Luis Instructions Activity Restrictions/Additional Instructions: Thank you for choosing [facility] for your healthcare needs today. It is very important that you follow up as instructed or that you return to the Emergency Department should you have concerns or if your condition changes or worsens in any way. You were seen in the emergency room with complaints of chest pain that is worse with exertion and better with rest. Your presenting symptoms are very concerning for acute coronary syndrome. I believe you may be at very high risk for having a heart attack. We did recommend that you be admitted you decided you would prefer to be discharged. Recommend that you continue to take aspirin daily and we will start you on isosorbide mononitrate 30 mg once daily. We also gave you sublingual nitro to use as needed if you have episodes of chest pain. If at any point you have chest pain that is not relieved by the sublingual nitro return to the nearest emergency room to be reevaluated. If you change your mind at any point you should return to the emergency room would be happy to see you again and evaluate further and admit for cardiology consultation. Print Language: [place] Helen[place] Coding Level of Care Code ED Ore Mixer for Tory Thomas
[2025-03-04 17:14] LABS: Hematocrit 41.8 % (37-53); Hemoglobin 13.50 g/dL (11.27-16.99); Mean Corpuscular HGB Conc 32.3 g/dL (30-55); Mean Corpuscular Hemoglobin 29.3 pg (27-33); Mean Corpuscular Volume 90.7 fl (82-101); Nucleated Red Blood Cells % 0 %; Platelet Count 270 10^3/cmm (157-399); Red Blood Count 4.61 10^6/uL (3.85-5.65); White Blood Count 7.55 10^3/uL (3.29-11.43)
[2025-03-04 17:26] LABS: INR 0.89 (0.8-1.2); Prothrombin Time 12.70 SECONDS (12.1-14.9)
[2025-03-04 17:39] VITALS: BP 182/109; PULSE 80; RESP 19; O2SAT 97
[2025-03-04 17:47] LABS: Troponin(5th) Baseline 28 ng/L (0-15)
[2025-03-04 17:50] LABS: Alanine Aminotransferase 11 U/L (0-41); Albumin Level 4.1 g/dL (3.5-5.2); Alkaline Phosphatase 126 U/L (40-130); Anion Gap 17.4 (5-19); Aspartate Amino Transferase 11 U/L (0-40); Blood Urea Nitrogen 10 mg/dL (8-23); Calcium 8.9 mg/dL (8.5-10.5); Carbon Dioxide 22 mmol/L (22-29); Chloride 104 mmol/L (98-107); Creatinine Clr Calc Pharmacy 64.0335; Globulin 2.5 g/dL (1.3-4.6); Glucose 110 mg/dL (65-115); Lipase 47 U/L (13-60); Osmolality Calculated 288 mOsm/kg (285-295); Potassium 4.4 mmol/L (3.5-5.1); Sodium 139 mmol/L (136-145); Total Protein 6.6 g/dL (6.6-8.7)
[2025-03-04 18:23] VITALS: BP 170/100; PULSE 88; O2SAT 97
== END 2025-03-04 18:25 | disposition home or self-care (01) ==
PROVIDERS: Emergency Medicine; Emergency Provider Family Medicine; PCP Nurse Practitioner Family
DX: I20.89 Other forms of angina pectoris (principal); R94.39 Abnormal result of other cardiovascular function study; I10 Essential (primary) hypertension; Z79.82 Long term (current) use of aspirin; F17.210 Nicotine dependence, cigarettes, uncomplicated; E11.9 Type 2 diabetes mellitus without complications; E78.2 Mixed hyperlipidemia
CPT/HCPCS: 36415; 71045; 80053; 83690; 84484; 85025; 85610; 93005; 99285; J9999

== ENCOUNTER 2025-04-08 12:08 | Outpatient (CLI) | payer MEDICAID, SELFPAY ==
--- NOTE | 2025-04-08 13:30 | CT_ITS ---
WS: [id number] CT chest w con* [id number] HISTORY: R91.1 - Solitary pulmonary nodule TECHNIQUE: Axial imaging performed through the thorax. Coronal and sagittal reformats are submitted. All CT scans at [facility] use at least one of these dose optimization techniques: automated exposure control; mA and/or kV adjustment per patient size (includes targeted exams where dose is matched to clinical indication); or iterative reconstruction. CONTRAST: Omnipaque 350; 100 mL IV. DLP: 405.61 mGy.cm COMPARISON: 01/02/2025, 11/26/2024 Lungs and central airway: Poor inspiratory effort. Crowding of the lung markings and hazy attenuation but improved with better inspiratory effort. Reidentified is a linear lobulated nodule with peripheral calcification in the lingula measuring 9 x 18 mm. No increase in size of this nodule since 11/26/2024. Reidentified is a 3 mm fissure along the lateral RIGHT minor fissure. Benign calcification LEFT lower lobe. No pneumonia. No consolidation. Pleura: Normal. No pleural effusion. Heart and pericardium: Mild cardiomegaly. Mediastinum and lópez: No adenopathy. Vessels: Atherosclerotic plaque within the aorta. No aneurysm. Normal size pulmonary artery. Chest wall and lower neck: No soft tissue masses. Upper abdomen: No adrenal mass. Visualized liver is negative. Osseous structures: Hypertrophic osteophytes along the RIGHT lateral thoracic spine. No destructive bone lesions. CT/CT chest w con* [id number] IMPRESSION: 1. Stable lobulated mass with peripheral calcification in the lingula measurin g 9 x 18 mm. No change since 11/26/2024. Recommend follow-up chest CT in 6 month s. 2. Poor inspiratory effort. No pneumonia. 3. Mild cardiomegaly. 4. No mediastinal or hilar pathologically enlarged lymph nodes.
[2025-04-08] MEDS: iohexol 350 mg/mL 500 mL Btl (per mL) IV (13:39)
== END 2025-04-08 12:09 | disposition home or self-care (01) ==
LOC: RAD 12:08
PROVIDERS: PCP Nurse Practitioner Family; Visit Provider Nurse Practitioner Family
DX: R91.1 Solitary pulmonary nodule (principal); I51.7 Cardiomegaly
CPT/HCPCS: 71260

== ENCOUNTER 2025-04-25 09:37 | Outpatient (CLI) | payer MEDICAID, SELFPAY ==
[2025-04-25 10:05] VITALS: BMI 29.0
--- NOTE | 2025-04-25 10:05 | ECG_ITS ---
[facility] 2025-[facility]25 Pat Name: Sumit Parrish Department: Room: Gender: Male Surg Physician Asst: : 1965 Requested By: Hafsa Steinberg Order Number: [id number] Yashira MD: KLAUDIA SANFORD Interpretive Statements Lung unchanged pre/post procedure; Intraprocedure shortess of breath; Symptoms resoled by discharge NOTE: Please note that this is the electrocardiogram portion of the Lexiscan/Sestamibi stress test. The perfusion scan will be documented separately. DATA: Baseline heart rate was 67 beats per minute. Baseline blood pressure was 207/110 millimeters of mercury. Target heart rate was 159 maximum heart rate achieved was 102 which was 64% of the predicted target heart rate. Maximum blood pressure was 207/110 millimeters of mercury. The reason for ending the test was [completion of the protocol]. The patient did not experience any symptoms. ELECTROCARDIOGRAM: BASELINE: Sinus rhythm. Normal axis. Nonspecific inferolateral ST-T flattening noted. No arrhythmia noted. EXERCISE: After Lexiscan injection, mild to moderate inferolateral ST-T changes/horizontal depression noted. No arrhythmia noted. CONCLUSION: Please note due to baseline abnormality of the EKG specificity and sensitivity of the EKG portion of LexiScan MIBI stress test will be low 1. [EKG equivocal for ischemia] 2. [Lexiscan injection unremarkable]. 3. Perfusion scan will be documented separately. Electronically Signed On 05-18-2025 20:17:02 CDT by KLAUDIA SANFORD [email or web address]
--- NOTE | 2025-04-25 10:06 | NMCV_ITS ---
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 Images obtained in supine and prone position. SPECT RESULTS Technical Quality: Good Raw Data Analysis: Normal Image Corrections: No attenuation or motion correction applied Summed Stress Score: 2 Summed Rest Score: 1 Summed Difference Score: 2 PERFUSION FINDINGS Small area of exposed fat noted in the apical region of the left ventricle suggestive of apical thinning artifact. Medium sized area of decreased tracer uptake noted in basal to mid inferior and inferolateral wall on the rest images which improved over stress images suggestive of an artifact. FUNCTIONAL RESULTS (calculated via Gated SPECT) Stress Image LV EF (%): 34 Stress EDV (mL):192 TID: 1.32 Stress ESV (mL):126 FUNCTIONAL FINDINGS: TID ratio is elevated could be left ventricular hypertrophy/subendocardial ischemia however cannot rule out multivessel coronary artery disease, clinical correlation advised. Global hypokinesis however with severely depressed ejection fraction however echocardiogram is a better modality to assess LV function. This LV function may not be reliable. IMPRESSIONS This study is negative for ischemia Kim Joshi MD (Electronically Signed) Final Date: 28 April 2025 15:08 S
[2025-04-25 11:31] VITALS: BP 182/102; PULSE 83
== END 2025-04-25 09:38 | disposition home or self-care (01) ==
LOC: CDL 09:38
PROVIDERS: PCP Nurse Practitioner Family; Visit Provider Nurse Practitioner Family
DX: R07.9 Chest pain, unspecified (principal); R93.1 Abnormal findings on diagnostic imaging of heart and coronary circulation
CPT/HCPCS: 36415; 78452; 93017; 96374; A9500; J2785

== ENCOUNTER → 2025-05-07 10:39 | Outpatient (BNVA) | payer MEDICAID, SELFPAY | PROVIDERS: PCP Nurse Practitioner Family; Referring Provider Nurse Practitioner Family; Visit Provider Internal Medicine Rheumatology | DX: M25.50 Pain in unspecified joint (principal) | CPT/HCPCS: 36415; 82085; 82306; 82550; 83520; 85651; 86140; 86480; 86704; 86803; 87340 ==

== ENCOUNTER 2025-05-20 09:46 | Outpatient (CLI) | payer OTHER, MEDICAID, SELFPAY ==
--- NOTE | 2025-05-20 10:00 | USCV_ITS ---
Sumit Parrish Age: 60 Gender: M : 1965 Exam Date: 05/20/2025 10:03 Ordering Phys: Hafsa Steinberg BRIM BLOCKER Technologist: Exam Location: [facility] Indication: cp sob BP: 160 / 90 HR: 76 Rhythm: Sinus Technical Quality: Adequate MEASUREMENTS (Male / Female) Normal Values 2D ECHO LV Diastolic Diameter PLAX 5.0 cm 4.2 - 5.9 / 3.9 - 5.3 cm IVS Diastolic Thickness 1.2 cm 0.6 - 1.0 / 0.6 - 0.9 cm IVS Systolic Thickness 1.9 cm LVPW Diastolic Thickness 1.3 cm 0.6 - 1.0 / 0.6 - 0.9 cm LVPW Systolic Thickness 1.9 cm LVOT Diameter 2.1 cm LV Ejection Fraction 2D Teich 55.7 % LV Ejection Fraction MOD 4C 61.0 % LV Ejection Fraction MOD 2C 63.5 % LV Ejection Fraction 2C AL 64.8 % LA Diameter 3.7 cm RA Systolic Volume 4C AL 42.9 ml RA Systolic Volume 4C MOD 41.7 ml LA Sys Volume AL 61.8 cm cubed LA Sys Volume Index AL 30.8 cm cubed/m squared Aorta at Sinotubular Diameter 3.4 cm IVC Diameter 2.0 cm M-MODE LA Ao Ratio MM 1.0 AV Cusp Separation MM 2.1 cm DOPPLER AV Peak Velocity 182.0 cm/s LVOT Peak Velocity 106.0 cm/s AV Area Cont Eq vti 2.8 cm squared AV Area Cont Eq pk 2.0 cm squared MV Peak Velocity 98.0 cm/s MV Area PHT 3.7 cm squared Mitral E to A Ratio 0.8 TV Peak E Velocity 88.0 cm/s PV Peak Velocity 98.0 cm/s FINDINGS Left Ventricle Mild left ventricular hypertrophy. Normal left ventricular size and systolic function, EF 56%. Normal diastolic function. Right Ventricle Normal right ventricular size and systolic function. Borderline pulmonary hypertension, RVSP 39 mmHg. Right Atrium Normal right atrial size. Left Atrium Normal left atrial size. IA Septum Normal appearance of the interatrial septum. Mitral Valve Normal mitral valve structure. No mitral valve stenosis. Mild mitral valve regurgitation. Aortic Valve Normal aortic valve structure. No aortic valve stenosis or regurgitation. Tricuspid Valve Normal tricuspid valve structure. No tricuspid valve stenosis or regurgitation. Normal pulmonary pressure. Pulmonic Valve Normal pulmonic valve structure. No pulmonic valve stenosis or regurgitation. Pericardium No pericardial effusion. Aorta Normal diameter of the aortic root and ascending thoracic aorta. IVC Normal IVC diameter. CONCLUSIONS Normal left ventricular size, systolic function and wall thickness with ejection fraction of 56%. Normal right ventricular size and systolic function. Mild mitral valve regurgitation Borderline pulmonary hypertension, RVSP 39 mmHg. Gualberto Em MD, FACC (Electronically Signed) Final Date: 22 May 2025 11:27 S
== END 2025-05-20 09:47 | disposition home or self-care (01) ==
LOC: RAD 09:47
PROVIDERS: PCP Nurse Practitioner Family; Visit Provider Nurse Practitioner Family
DX: I10 Essential (primary) hypertension (principal); R07.9 Chest pain, unspecified; R03.0 Elevated blood-pressure reading, without diagnosis of hypertension; I34.0 Nonrheumatic mitral (valve) insufficiency
CPT/HCPCS: 93306

== ENCOUNTER → 2025-05-22 11:51 | Outpatient (BNVA) | payer MEDICAID, SELFPAY | PROVIDERS: PCP Nurse Practitioner Family; Visit Provider Internal Medicine Cardiovascular Disease | DX: I10 Essential (primary) hypertension (principal); R07.9 Chest pain, unspecified; R58 Hemorrhage, not elsewhere classified | CPT/HCPCS: 36415; 80048; 85025; 85610 ==

== ENCOUNTER 2025-05-26 09:17 | Outpatient (CLI) | payer MEDICAID, SELFPAY ==
[2025-05-26 09:40] VITALS: BP 232/133; PULSE 110; RESP 22; TEMP 36.9; O2SAT 98; BMI 29.5
--- NOTE | 2025-05-26 09:40 | PC.NURSE ---
Patient BP on admission 232/133. HR 109. Dr Joshi notified with new ordered received. See OCT.
[2025-05-26] MEDS: hyDRALAzine 20 mg/mL INJ 1 mL 10 MG IVP (10:06)
[2025-05-26 10:15] VITALS: BP 178/102
--- NOTE | 2025-05-26 10:58 | W.PM.OPSUD ---
Surgery/Procedure H&P Update DATE OF PROCEDURE: May 26, 2025 DATE H&P PERFORMED: 05/22/25 H&P UPDATE INFORMATION: I have reviewed H&P completed within last 30 days, I have examined patient prior to procedure and No changes to prior documentation CHANGES TO PREVIOUS DOCUMENTATION: Chest pain suggestive of angina Shortness of breath out of usual Uncontrolled hypertension History of CVA Abnormal stress test in the form of TID suspicious for multivessel disease with balanced ischemia PRIMARY INDICATION FOR PROCEDURE: Patient has been referred for above defined reason for left heart cath by Dr. 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 on the suspicion of angina abnormal stress test and high suspicion for multivessel disease PLANNED PROCEDURE: Operation Date: 05/26/25 10:00 Proposed Procedures p LEFT Cardiac Catheterization - LHC w/wo LV&Alfa(Left) - Kim Joshi MD PATIENT REASSESSED PRIOR TO SEDATION, WITH NO CHANGE NOTED: Yes PHYSICAL EXAM: alert, oriented x 3, clear to auscultation bilaterally, regular rate & rhythm and operative site marked AIRWAY EVAL/ANESTHESIA PLAN: ASA II, Risks, benefits & alternatives of sedation and/or procedure discussed and Patient agrees to continue as planned ADDITIONAL INFORMATION: Patient has been explained all risk-benefit and alternative for the procedure. Patient understand 2% risk of stroke major bleed. Patient understand 5% risk of minor bleeding oozing infection hematoma contrast-induced nephropathy urgent or emergent vascular bypass surgery patient would like to proceed with it.
--- NOTE | 2025-05-26 11:13 | PC.NURSE ---
The patient is refusing to allow groin access during the procedure. Dr. Joshi spoke to the patient regarding this matter and explained that it cannot be 100% for sure that the procedure could be completed in the radial approach. The patient states that he is not willing to allow groin access no matter the situation. The case will be canceled per Dr. Joshi.
== END 2025-05-26 09:18 | disposition home or self-care (01) ==
LOC: CCL 09:19
PROVIDERS: PCP Nurse Practitioner Family; Visit Provider Internal Medicine Cardiovascular Disease
DX: Z53.8 Procedure and treatment not carried out for other reasons (principal)
CPT/HCPCS: 36415; J0360; J1644; J2250; J3010; J3490; J7030; J9999; Q0163